=== PATIENT | female | born 1955 | race Caucasian/White ===

== ENCOUNTER 2018-10-21 05:53 | Inpatient (IN) | payer BC ==
--- NOTE | 2018-10-13 17:23 | HP ---
HISTORY AND PHYSICAL: DATE OF ADMISSION/SURGERY: 10/21/18 DATE OF OFFICE VISIT: 10/13/18 SURGEON: Carolyn العلي MD * (DICTATED BY UYEN CROWE) PROCEDURE: Right total knee arthroplasty. CHIEF COMPLAINT: Right knee pain. HISTORY OF PRESENT ILLNESS: Ms. Benton is a 63-year-old female with end-stage osteoarthritis of the right knee. She has failed conservative treatment and elected to proceed with right total knee arthroplasty. PAST MEDICAL HISTORY: Breast cancer, DVT/PE, and sleep apnea. PAST SURGICAL HISTORY: Cholecystectomy, appendectomy, cyst removal from her head, tubal ligation, placement of chemotherapy port, and mastectomy. CURRENT MEDICATIONS: 1. Letrozole 2.5 mg daily. 2. Vitamin D3. ALLERGIES: To MACRODANTIN. FAMILY HISTORY: Cancer. SOCIAL HISTORY: She is a 63-year-old female. She lives with her spouse. She is a former smoker, quit approximately 30 years ago. Denies use of drugs. She uses occasional alcohol. REVIEW OF SYSTEMS: A complete 14-point review of systems was reviewed with the patient. It was positive for history of DVT, PE. She denies history of HIV, hepatitis, or anesthesia problems. PHYSICAL EXAMINATION GENERAL: She is well developed, well nourished, in no acute distress. VITAL SIGNS: She stands 5 feet tall, weight 222 pounds, blood pressure 144/86, heart rate 64. HEENT: Normocephalic, atraumatic. NECK: Supple. No palpable lymph nodes. PULMONARY: The lungs are clear to auscultation bilaterally. CARDIO: Regular rate and rhythm. Strong S1, S2. ABDOMEN: Soft, nontender, nondistended. NEUROLOGIC: She is alert and oriented x3. MUSCULOSKELETAL: Right lower extremity: Skin is intact. There are no open wounds or abrasions. There is a moderate effusion of the right knee joint. She has some tenderness over the medial and lateral joint line. Range of motion is 5 to 100 degrees of flexion with patellofemoral crepitus. She has a 2 + dorsalis pedis pulse and intact sensation. ASSESSMENT AND PLAN: Ms. Benton is a 63-year-old female with end-stage osteoarthritis of the right knee. She has failed conservative treatment and elected to proceed with a right total knee arthroplasty. The surgery is scheduled for 10/21/[address] العلي discussed the risks and benefits of the surgery at today's visit and all of her questions were answered. She will follow up with Dr. العلي 2 weeks after the surgery. No TXA will be used on this patient secondary to history of DVT/PE and postoperatively, the patient has requested Xarelto for DVT prophylaxis. UYEN CROWE [id number]/[facility] #: [id number] KASIA
[~2018-10-21 05:53] MED LIST: Buffered Lidocaine 1% SYRIN* 1 ML/SYRINGE INTRADERM ONE
--- OUTSIDE RECORDS SUMMARY | 2018-10-21 05:57 | XMS REPORT | Continuity of Care Document ---
:1955 External Reference #:[id number] Author Name Mary Brooke Care Team Providers Name Role Phone Trini Mann MD Primary Care Physician Unavailable Payers Date Identification Numbers Payment Provider Subscriber Effective: 2016 Policy Number: [id number] [employer] Sweta Benton PayID: [id number] [address] [address] [place] [address] Advance Directives Description No Information Available Problems Active Problems Provider Date Difficulty breathing Brandee Ramirez MD Onset: 12/12/2015 Morbid obesity Brandee Ramirez MD Onset: 12/12/2015 Obstructive sleep apnea syndrome Brandee Ramirez MD Onset: 01/15/2016 Obesity Brandee Ramirez MD Onset: 01/15/2016 Localized, primary osteoarthritis Carolyn العلي M.D. Onset: 07/05/2018 Family History Date Family Member(s) Observation Comments Father due to Gastric Cancer () - Age 56 Mother due to Emphysema () Mother due to COPD () - age 78 Siblings 2 sisters healthy 1 brother Social History Type Date Description Comments Sex Unknown Marital Status Occupation civil engineer's aide No pets in home Cigarette Use Quit 33 Years Ago ETOH Use Denies alcohol use Tobacco Use Start: Unknown End: Patient is a former Unknown smoker Smoking Status Reviewed: 10/13/18 Patient is a former smoker Exercise Type/Frequency Exercises regularly walks Allergies, Adverse Reactions, Alerts Active Allergies Reaction Severity Comments Date Macrodantin 12/12/2015 Medications Active Medications SIG Qnty Indications Ordering Provider Date Letrozole 1 by mouth daily Unknown 09/03/2016 2.5mg Tablets Vitamin D3 2 by mouth every Unknown 09/03/2016 2000Unit day Tablets Mandibular dear , please G47.33 Brandee Ramirez, 01/15/2016 Advancement Device evaluate and MD fabricate oral Device appliance for mild sleep apnea History Medications Celebrex 1 tab by mouth a day as Unknown 09/03/2016 - Unknown 100mg Capsules needed Coumadin as directed Unknown 01/24/2016 - Unknown 5mg Solution Rec Lovenox 1 subcutaneously every 12 Unknown 01/24/2016 - Unknown 100mg/ml Solution hours as directed Multi Adult Gummies 1 by mouth every day Unknown 12/11/2015 - Unknown Chewtabs Emend As directed Unknown 12/11/2015 - Unknown 125mg Capsules Dexamethasone As directed Unknown 12/11/2015 - Unknown 4mg Tablets Prochlorperazine Maleate take 1 tablet by mouth Unknown - Unknown 10mg three times a day as Tablets needed Ondansetron HCL one by mouth every 8 Unknown - Unknown 4mg Tablets hours as needed for nausea Xarelto 1 by mouth every day Unknown - Unknown 20mg Tablets Immunizations Description No Information Available Vital Signs Date Vital Result Comment 10/13/2018 10:45am Height 60 inches 5'0" Weight 222.00 lb Heart Rate 64 /min BP Systolic 144 mmHg BP Diastolic 86 mmHg BMI (Body Mass Index) 43.4 kg/m2 09/27/2018 8:17am Height 60 inches 5'0" Weight 222.00 lb Heart Rate 68 /min BP Systolic 120 mmHg BP Diastolic 84 mmHg Body Temperature 97.7 F Pain Level 2 BMI (Body Mass Index) 43.4 kg/m2 07/05/2018 3:16pm Height 60 inches 5'0" Weight 220.00 lb BP Systolic 136 mmHg BP Diastolic 86 mmHg Respiratory Rate 18 /min Pain Level 8 BMI (Body Mass Index) 43.0 kg/m2 10/22/2017 2:22pm Heart Rate 76 /min Respiratory Rate 16 /min Body Temperature 99.1 F 10/13/2017 11:18am Heart Rate 80 /min BP Systolic 140 mmHg BP Diastolic 82 mmHg Respiratory Rate 16 /min Body Temperature 98.5 F 09/29/2017 1:31pm Height 60.5 inches 5'0.50" Weight 232.00 lb Heart Rate 72 /min BP Systolic 152 mmHg BP Diastolic 92 mmHg Respiratory Rate 16 /min Body Temperature 98.2 F BMI (Body Mass Index) 44.6 kg/m2 08/28/2016 2:28pm Height 60.5 inches 5'0.50" Weight 232.00 lb Heart Rate 92 /min BP Systolic 128 mmHg BP Diastolic 88 mmHg Respiratory Rate 14 /min O2 % BldC Oximetry 97 % BMI (Body Mass Index) 44.6 kg/m2 03/24/2016 2:36pm Height 60.5 inches 5'0.50" Weight 220.00 lb Heart Rate 66 /min BP Systolic 118 mmHg BP Diastolic 72 mmHg Respiratory Rate 16 /min Body Temperature 98.0 F BMI (Body Mass Index) 42.3 kg/m2 01/15/2016 3:43pm Height 60.5 inches 5'0.50" Weight 230.00 lb Heart Rate 74 /min BP Systolic 128 mmHg BP Diastolic 80 mmHg Respiratory Rate 14 /min O2 % BldC Oximetry 94 % BMI (Body Mass Index) 44.2 kg/m2 12/12/2015 8:47am Height 60.5 inches 5'0.50" Weight 230.00 lb Heart Rate 108 /min BP Systolic 126 mmHg BP Diastolic 60 mmHg Respiratory Rate 14 /min O2 % BldC Oximetry 94 % BMI (Body Mass Index) 44.2 kg/m2 Neck Circumference in inches 14.5 Results Test Date Facility Test Result H/L Range Note CBC Auto Diff 03/04/2016 [facility] White Blood 7.0 10^3/uL N 3.5-10.[address] [place] [address] [phone] Red Blood Count 4.11 10^6/uL N 4.0-5.4 Hemoglobin 12.5 g/dL N 12.0-16.0 Hematocrit 38 % N 35-47 Mean Corpuscular Volume 94 fL N 80-97 Mean Corpuscular Hemoglobin 30 pg N 27-31 Mean Corpuscular HGB Conc 33 g/dL N 31-36 Red Cell Distribution Width 17 % High 10.5-15 Platelet Count 265 10^3/uL N 150-450 Mean Platelet Volume 8 um3 N 7.4-10.4 Abs Neutrophils 5.7 10^3/uL N 1.5-7.7 Abs Lymphocytes 0.7 10^3/uL Low 1.0-4.8 Abs Monocytes 0.5 10^3/uL N 0-0.8 Abs Eosinophils 0.1 10^3/uL N 0-0.6 Abs Basophils 0.1 10^3/uL N 0-0.2 Abs Nucleated RBC 0 10^3/uL N Granulocyte % 80.9 % N 38-83 Lymphocyte % 9.5 % Low 25-47 Monocyte % 7.1 % N 1-9 Eosinophil % 1.5 % N 0-6 Basophil % 1.0 % N 0-2 Nucleated Red Blood Cells % 0 N Basic Metabolic Panel 03/04/2016 [facility] Sodium 139 mmol/L N 133-[address] [place] [address] [phone] Potassium 4.1 mmol/L N 3.5-5.0 Chloride 105 mmol/L N 101-111 Co2 Carbon Dioxide 27 mmol/L N 22-32 Anion Gap 7 mmol/L N 2-11 Glucose 88 mg/dL N 70-100 Blood Urea Nitrogen 10 mg/dL N 6-24 Creatinine 0.64 mg/dL N 0.51-0.95 BUN/Creatinine Ratio 15.6 N 8-20 Calcium 9.4 mg/dL N 8.6-10.3 Egfr Non- 94.7 N >60 Egfr 121.7 N >60 2 1 AA 03/14 2 Because ethnic data is not always readily available, this report includes an eGFR for both -Americans and non- Americans. The National Kidney Disease Education Program (NKDEP) does not endorse the use of the MDRD equation for patients that are not between the ages of 18 and 70, are , have extremes of body size, muscle mass, or nutritional status, or are non- or non-. According to the National Kidney Foundation, irrespective of diagnosis, the stage of the disease is based on the level of kidney function: Stage Description GFR(mL/min/1.73 m(2)) 1 Kidney damage with normal or decreased GFR 90 2 Kidney damage with mild decrease in GFR 60-89 3 Moderate decrease in GFR 30-59 4 Severe decrease in GFR 15-29 5 Kidney failure <15 (or dialysis) Procedures Date Code Description Status 10/13/2017 43965 Excision Benign Lesion Incl Diameter 1.1 - 2.0 CM Completed Scalp,Neck,Hand 03/04/2016 43663 EKG, Interpretation Only Completed 01/24/2016 56882 ECHO Transthoracic, Real-Time 2D With Doppler And Color Completed Flow 12/24/2015 75921 Sleep Study Unattended,HRT Rate,Oxygen Sat,Resp Completed Effort/Airflow 10/30/2015 34495 ECHO Transthorasic Realtime 2D W Doppler & Color Flow Completed Hosp 08/31/2015 [id number] Mammogram Completed Encounters Type Date Location Provider Dx Diagnosis Office Visit 09/27/2018 Orthopedic Carolyn العلي, M17.0 Bilateral primary 8:30a [facility] osteoarthritis of knee Z68.41 Body mass index (BMI) 40.0-44.9, adult E66.01 Morbid (severe) obesity due to excess calories M25.562 Pain in left knee M25.561 Pain in right knee M25.462 Effusion, left knee M25.461 Effusion, right knee Office Visit 07/05/2018 3:00p [facility]opedic [facility] Carolyn العلي, M25.562 Pain in left [facility] knee M25.561 Pain in right knee M25.462 Effusion, left knee M25.461 Effusion, right knee M17.0 Bilateral primary osteoarthritis of knee E66.01 Morbid (severe) obesity due to excess calories Z68.41 Body mass index (BMI) 40.0-44.9, adult Office Visit 09/29/2017 1:30p Surgical Natali Nehemiah L72.3 Sebaceous cyst [facility] MD Marco Antonio Office Visit 08/28/2016 2:30p Pulmonology And Brandee G47.33 Obstructive sleep [facility] MD James apnea (adult) [facility] (pediatric) E66.09 Other obesity due to excess calories Z68.41 Body mass index (BMI) 40.0-44.9, adult Office Visit 01/15/2016 3:45p Pulmonology And Brandee G47.33 Obstructive sleep [facility] apnea (adult) [facility] (pediatric) E66.09 Other obesity due to excess calories Office Visit 12/12/2015 8:45a Pulmonology And Sleep Brandee Ramirez, R06.83 [facility] E66.01 Morbid (severe) obesity due to excess calories Plan of Treatment Future Appointment(s):11/03/2018 8:45 am - Carolyn العلي M.D. at [facility].10/21/2018 11:45 am - José Manuel Abdalla PA-C at [facility].10/21/2018 11:45 am - UYEN Menjivar at [facility].10/21/2018 11:45 am - Carolyn العلي M.D. at [facility].10/13/2018 - Carolyn العلي M.D.M17.0 Bilateral primary osteoarthritis of kneeFollow up:Follow up: 2 weeks after [id number] Effusion, right kneeM25.561 Pain in right knee
--- OUTSIDE RECORDS SUMMARY | 2018-10-21 05:57 | XMS REPORT | Continuity of Care Document ---
:1955 External Reference #:[id number] Author Name Trini Mann M.D. Address [address] [place] [address] Care Team Providers Name Role Phone Trini Mann M.D. Care Team Information Associate Loan Officer Unavailable Trini Mann M.D. Primary Care Physician Unavailable Payers Date Identification Numbers Payment Provider Subscriber Effective: 2016 Policy Number: [id number] /BS Of [facility] Aimee Hyatt PayID: [id number] [place] [id number] Advance Directives Description No Information Available Problems Active Problems Provider Date Carcinoma of breast Trini Mann M.D. Onset: 09/11/2015 Obstructive sleep apnea syndrome Trini Mann M.D. Onset: 08/29/2016 H/O: pulmonary embolus Trini Mann M.D. Onset: 10/04/2018 Obesity Trini Mann M.D. Onset: 04/29/2017 Localized, primary osteoarthritis Trini Mann M.D. Onset: 12/19/2016 Impaired fasting glycaemia Trini Mann M.D. Onset: 12/19/2016 Personal history of primary malignant neoplasm Trini Mann M.D. Onset: 12/2016 of breast Resolved Problems Acute upper respiratory infection Gilbert Maria M.D. Onset: 06/18/2011 Resolved: 09/11/2015 Family History Date Family Member(s) Observation Comments Father due to Stomach Cancer () Mother Coronary Artery Disease (CAD) Mother due to COPD () Mother Emphysema First Sister Ovarian Cancer Social History Type Date Description Comments Sex Unknown Marital Status . Lives With Spouse Diet Portions working on Tobacco Use Start: Unknown End: Former Cigarette Smoker Unknown ETOH Use Social Alcohol Tobacco Use Start: Unknown End: Patient is a former Unknown smoker Smoking Status Reviewed: 10/04/18 Patient is a former smoker Exercise Exercises sporadically walking at work Type/Frequency Allergies, Adverse Reactions, Alerts Active Allergies Reaction Severity Comments Date Macrodantin 02/04/2005 Medications Active Medications SIG Qnty Indications Ordering Provider Date Vitamin D 2 by mouth every Unknown 2000Unit Capsules day Letrozole 1 by mouth every Unknown 2.5mg Tablets day History Medications Acetaminophen-Codeine #3 1-2 tab by mouth 90tabs M17.0 Trini Mann, 02/25 - 300-30mg every 6 hours as M.DAdina 08/31/2017 Tablets needed Celecoxib 1 by mouth twice 60caps M17.0 Gilbert Sánchez 12/19/2016 - 200mg Capsules a day Leonor Maria 02/25/2017 No Active Medications Unknown 08/30/2015 - 12/19/2016 Work Excuse unable to work Gilbert Sánchez 06/18/2011 - for 1-2 days Leonor Maria 08/30/2015 due to respiratory illness Entex Pse 1 po q12 hrs prn 20caps Preethi 02/04/2005 - 400mg;120 mg Capsules samir [facility], 06/18/2011 Afnp-C Cefuroxime 500Mpo bid 0units [facility] 06/10/2004 - [facility] 09/27/2007 [facility] Multivitamin 1 po qd Unknown - Tablets 08/31/2017 Immunizations CPT Code Status Date Vaccine Lot # [id number] Given 02/26/2017 Influenza Vac, Quadriv[place], [place] [id number] Given 02/25/2017 Tdap Tetanus, W Pertussis [id number] Vital Signs Date Vital Result Comment 10/04/2018 3:19pm BP Systolic 128 mmHg BP Diastolic 82 mmHg Heart Rate 68 /min Body Temperature 97.4 F Respiratory Rate 17 /min Height 60.5 inches 5'0.50" Weight 222.00 lb BMI (Body Mass Index) 42.6 kg/m2 09/01/2017 2:02pm BP Systolic 128 mmHg BP Diastolic 72 mmHg Heart Rate 76 /min Body Temperature 98.8 F Respiratory Rate 16 /min Height 60.5 inches 5'0.50" Weight 243.00 lb BMI (Body Mass Index) 46.7 kg/m2 04/29/2017 4:15pm BP Systolic 140 mmHg BP Diastolic 88 mmHg Heart Rate 68 /min Body Temperature 98.0 F Respiratory Rate 18 /min Height 60.5 inches 5'0.50" Weight 242.00 lb BMI (Body Mass Index) 46.5 kg/m2 02/25/2017 8:07am BP Systolic 160 mmHg BP Diastolic 100 mmHg BP Systolic Recheck 164 mmHg BP Diastolic Recheck 104 mmHg Heart Rate 72 /min Body Temperature 98.0 F Respiratory Rate 18 /min Height 60.5 inches 5'0.50" Weight 240.00 lb BMI (Body Mass Index) 46.1 kg/m2 12/19/2016 4:28pm BP Systolic 152 mmHg BP Diastolic 88 mmHg Heart Rate 76 /min Body Temperature 99.4 F Respiratory Rate 16 /min Height 60.5 inches 5'0.50" Weight 233.50 lb BMI (Body Mass Index) 44.8 kg/m2 08/30/2015 1:50pm BP Systolic 142 mmHg BP Diastolic 84 mmHg Heart Rate 88 /min Body Temperature 98.6 F Respiratory Rate 16 /min Height 60.5 inches 5'0.50" Weight 241.25 lb BMI (Body Mass Index) 46.3 kg/m2 06/18/2011 1:19pm BP Systolic 130 mmHg BP Diastolic 84 mmHg Heart Rate 72 /min Body Temperature 100.8 F Height 60.5 inches 5'0.50" Weight 220.00 lb BMI (Body Mass Index) 42.3 kg/m2 09/27/2007 2:05pm BP Systolic 138 mmHg BP Diastolic 88 mmHg Heart Rate 76 /min Body Temperature 98.4 F Height 60.5 inches 5'0.50" Weight 238.00 lb BMI (Body Mass Index) 45.7 kg/m2 02/04/2005 10:20am BP Systolic 132 mmHg BP Diastolic 90 mmHg Heart Rate 68 /min Body Temperature 98.1 F Height 60.5 inches 5'0.50" Weight 222.00 lb BMI (Body Mass Index) 42.6 kg/m2 06/10/2004 1:27pm BP Systolic 142 mmHg BP Diastolic 84 mmHg Heart Rate 68 /min Height 60.5 inches 5'0.50" Weight 224.00 lb BMI (Body Mass Index) 43.0 kg/m2 Results Test Date Facility Test Result H/L Range Note Urinalysis Profile [place]/25/[place] [facility] Color Yellow Urine Appearance Cloudy Urine Specific [place] 1.023 N 1.010-1.030 Urine pH 5.0 N 5-9 Urine Urobilinogen Negative Negative Urine Ketones Negative Negative Urine Protein Negative Negative Urine Leukocytes 3+ Abnormal Negative Urine Blood Negative Negative Urine Nitrite Negative Negative Urine Bilirubin Negative Negative Urine Glucose Negative Negative Urine White Blood Cell 3+(>20/hpf) Abnormal Absent Urine Red Blood Cell 3+(>10/hpf) Abnormal Absent Urine Bacteria 1+ Abnormal Absent Urine Squamous Epithelial Cell Present Abnormal Absent Urine Culture And 12/25/2017 [facility] [place] Culture SEE RESULT BELOW 1 Sensitivities CBC Auto Diff 12/25/2017 [facility] White Blood Count 9.9 10^3/uL N 3.5-10.8 Red Blood Count 4.92 10^6/uL N 4.00-5.40 Hemoglobin 15.0 g/dL N 12.0-16.0 Hematocrit 45 % N 35-47 Mean Corpuscular Volume 91 fL N 80-97 Mean Corpuscular Hemoglobin 31 pg N 27-31 Mean Corpuscular HGB Conc 33 g/dL N 31-36 Red Cell Distribution Width 14 % N 10.5-15 Platelet Count 241 10^3/uL N 150-450 Mean Platelet Volume 8.4 um3 N 7.4-10.4 Abs Neutrophils 7.3 10^3/uL N 1.5-7.7 Abs Lymphocytes 1.7 10^3/uL N 1.0-4.8 Abs Monocytes 0.6 10^3/uL N 0-0.8 Abs Eosinophils 0.2 10^3/uL N 0-0.6 Abs Basophils 0.1 10^3/uL N 0-0.2 Abs Nucleated RBC 0 10^3/uL Granulocyte % 73.9 % N 38-83 Lymphocyte % 16.8 % Low 25-47 Monocyte % 6.4 % N 0-7 Eosinophil % 2.0 % N 0-6 Basophil % 0.9 % N 0-2 Nucleated Red Blood Cells % 0.1 Comp Metabolic Panel 12/25/2017 [facility] Sodium 140 mmol/L N 135-145 Potassium 4.1 mmol/L N 3.5-5.0 Chloride 104 mmol/L N 101-111 Co2 Carbon Dioxide 26 mmol/L N 22-32 Anion Gap 10 mmol/L N 2-11 Glucose 158 mg/dL High 70-100 Blood Urea Nitrogen 17 mg/dL N 6-24 Creatinine 0.72 mg/dL N 0.51-0.95 BUN/Creatinine Ratio 23.6 High 8-20 Calcium 9.8 mg/dL N 8.6-10.3 Total Protein 7.1 g/dL N 6.4-8.9 Albumin 4.3 g/dL N 3.2-5.2 Globulin 2.8 g/dL N 2-4 Albumin/Globulin Ratio 1.5 N 1-3 Total Bilirubin 0.40 mg/dL N 0.2-1.0 Alkaline Phosphatase 92 U/L N 34-104 Alt 36 U/L N 7-52 Ast 27 U/L N 13-39 Egfr Non- 82.1 >60 Egfr 99.3 >60 2 Laboratory test 12/25/2017 [facility] Vitamin D Total 39.5 ng/mL N 20-50 finding 25(Oh) Laboratory test 09/09/2017 [facility] Hemoglobin A1c 6.3 % High 4.1- 5.7 finding (607)- - (Fma) Laboratory test 09/09/2017 [facility] LDL, Direct 137 mg/dL High 0- 130 finding CBC Electronic 09/09/2017 [facility] WBC 7.5 4.0-10.0 Fma x10^3/UL RBC 5.22 x10^6/UL 3.93-6.00 HGB 15.8 g/dL 12.0-17.0 HCT 47 % 35-50 MCV 90.2 fL 80.0-95.0 MCH 30.3 pg 25.6-32.2 MCHC 33.5 g/dL 32.2-36.0 RDW-CV 13.2 % 11.6-14.4 PLT 246 x10^3/UL 163-400 MPV 10.8 fL 9.4-12.4 Tiny# 5.28 x10^3/UL 1.56-6.13 Lymph# 1.53 x10^3/UL 1.18-3.74 Bath# 0.49 x10^3/UL 0.24-0.82 Eos # 0.2 x10^3/UL 0.0-0.5 Baso # 0.06 x10^3/UL 0.01-0.08 Tiny% 70.0 % 34.0-70.0 Lymph % 20.3 % 20.0-52.0 Bath% 6.5 % 5.0-12.0 Eos% 2.3 % 0.7-7.0 Baso% 0.8 % 0.1-1.2 Lipid Profile 09/09/2017 [facility] Cholesterol 241 mg/dL High 120- 200 Triglycerides 306 mg/dL High 30-200 HDL Cholesterol 44 mg/dL 30-85 LDL (Calculated) 136 CALC High 0-129 VLDL Cholesterol 61 mg/dL High 0-50 HDL Risk Factor 5.5 CALC High 0.0-4.4 Comprehensive Metabolic Prof 09/09/2017 [facility] Sodium 143 mEq/L 134-149 Potassium 4.3 mEq/L 3.6-5.5 Chloride 103 mEq/L 94-112 Carbon Dioxide 28 mEq/L 21-32 Glucose 116 mg/dL High 70-105 3 BUN 15 mg/dL 6-26 Creatinine 0.7 mg/dL 0.6-1.4 BUN/Creat Ratio 21.4 CALC 8.0-36.0 Calcium 10.2 mg/dL 8.6-10.2 Total Protein 7.6 g/dL 6.4-8.3 Albumin 4.5 g/dL 3.8-5.5 Globulin 3.1 g/dL 2.0-4.8 A/G Ratio 1.5 CALC 0.6-2.3 Alk. Phosphatase 109 U/L 30-110 Alt (SGPT) 35 U/L 7-35 Ast (Sgot) 31 U/L 5-34 Total Bilirubin 0.6 mg/dL 0.2-1.3 GFR Non- >60 ml/min/1.73m^ >=60 GFR >60 ml/min/1.73m^ >=60 Laboratory test 04/17/2017 [facility] [place]ology SEE RESULT 4 finding BELOW Laboratory test 02/25/2017 [facility] PDF [id number] SEE IMAGE finding [address] [place] [address] (912)- - Age 0902/25/2017 [facility] Age 30-65 [address] [place] [address] (810)- - Diagn See Comment: 5 Adeq See Comment: 6 [email or web address] See Comment: 7 Perfor See Comment: 8 Comm . Note See Comment: 9 Iglbp See Comment: 10 HPV Aptima Negative Negative 11 Laboratory test 02/25/2017 [facility] Hemoglobin A1c 6.1 % High 4.1- 5.7 finding (607)- - (Fma) Complete Blood 02/25/2017 [facility] WBC 6.2 3.6-9.6 Count x10^3/UL RBC 5.06 x10^6/UL 3.90-5.70 HGB 15.4 g/dL 12.1-17.2 HCT 46 % 36-50 MCV 91.0 fL 82.2-97.4 MCH 30.4 pg 27.6-33.3 MCHC 33.6 g/dL 33.0-35.5 RDW 14.4 % High 11.6-13.7 PLT 251 x10^3/UL 150-400 MPV 7.8 fL 7.4-10.4 Gran # 4.6 x10^3/UL 1.5-7.2 Lymph# 1.3 x10^3/UL 0.7-4.9 Bath# 0.3 x10^3/UL 0.1-0.9 Gran % 72.5 % 42.2-75.2 Lymph % 21.6 % 20.5-51.1 Bath% 5.9 % 1.7-9.3 Comprehensive Metabolic Prof 02/25/2017 [facility] Sodium 139 mEq/L 134-149 Potassium 4.4 mEq/L 3.6-5.5 Chloride 99 mEq/L 94-112 Carbon Dioxide 25 mEq/L 21-32 Glucose 110 mg/dL High 70-105 BUN 12 mg/dL 6-26 Creatinine 0.7 mg/dL 0.6-1.4 BUN/Creat Ratio 17.1 CALC 8.0-36.0 Calcium 10.0 mg/dL 8.6-10.2 Total Protein 6.7 g/dL 6.4-8.3 Albumin 4.4 g/dL 3.8-5.5 Globulin 2.3 g/dL 2.0-4.8 A/G Ratio 1.9 CALC 0.6-2.3 Alk. Phosphatase 90 U/L 30-110 Alt (SGPT) 32 U/L 7-35 Ast (Sgot) 25 U/L 5-34 Total Bilirubin 0.6 mg/dL 0.2-1.3 GFR Non- >60 ml/min/1.73m^ >=60 GFR >60 ml/min/1.73m^ >=60 Lipid Profile 02/25/2017 [facility] Cholesterol 238 mg/dL High 120- 200 Triglycerides 243 mg/dL High 30-200 HDL Cholesterol 51 mg/dL 30-85 LDL (Calculated) 138 CALC High 0-129 VLDL Cholesterol 49 mg/dL 0-50 HDL Risk Factor 4.7 CALC High 0.0-4.4 Laboratory test 02/25/2017 [facility] TSH 3.51 mIU/L 0.50-6.00 finding Lipid Profile 11/24/2016 [facility] Triglycerides 222 mg/dL N 12 (Trig/Chol/HDL) Cholesterol 203 mg/dL N 13 HDL Cholesterol 43.2 mg/dL N 14 LDL Cholesterol 115 mg/dL N 15 Comp Metabolic Panel 11/24/2016 [facility] Sodium 138 mmol/L N 133-145 Potassium 4.0 mmol/L N 3.5-5.0 Chloride 106 mmol/L N 101-111 Co2 Carbon Dioxide 27 mmol/L N 22-32 Anion Gap 5 mmol/L N 2-11 Glucose 114 mg/dL High 70-100 Blood Urea Nitrogen 12 mg/dL N 6-24 Creatinine 0.74 mg/dL N 0.51-0.95 BUN/Creatinine Ratio 16.2 N 8-20 Calcium 9.9 mg/dL N 8.6-10.3 Total Protein 7.0 g/dL N 6.4-8.9 Albumin 4.2 g/dL N 3.2-5.2 Globulin 2.8 g/dL N 2-4 Albumin/Globulin Ratio 1.5 N 1-3 Total Bilirubin 0.60 mg/dL N 0.2-1.0 Alkaline Phosphatase 90 U/L N 34-104 Alt 22 U/L N 7-52 Ast 19 U/L N 13-39 Egfr Non- 79.8 N >60 Egfr 102.6 N >60 16 CBC Auto Diff 11/24/2016 [facility] [place] Blood Count 8.8 10^3/uL N 3.5-10.8 Red Blood Count 5.20 10^6/uL N 4.0-5.4 Hemoglobin 15.1 g/dL N 12.0-16.0 Hematocrit 46 % N 35-47 Mean Corpuscular Volume 89 fL N 80-97 Mean Corpuscular Hemoglobin 29 pg N 27-31 Mean Corpuscular HGB Conc 33 g/dL N 31-36 Red Cell Distribution Width 14 % N 10.5-15 Platelet Count 236 10^3/uL N 150-450 Mean Platelet Volume 9 um3 N 7.4-10.4 Abs Neutrophils 6.7 10^3/uL N 1.5-7.7 Abs Lymphocytes 1.3 10^3/uL N 1.0-4.8 Abs Monocytes 0.5 10^3/uL N 0-0.8 Abs Eosinophils 0.2 10^3/uL N 0-0.6 Abs Basophils 0.1 10^3/uL N 0-0.2 Abs Nucleated RBC 0.01 10^3/uL N Granulocyte % 76.2 % N 38-83 Lymphocyte % 14.9 % Low 25-47 Monocyte % 5.6 % N 1-9 Eosinophil % 2.3 % N 0-6 Basophil % 1.0 % N 0-2 Nucleated Red Blood Cells % 0.1 N Laboratory test finding 08/15/2016 [facility] Vitamin D Total 25(Oh) 35.9 ng/mL N 30-50 Comp Metabolic Panel 08/15/2016 [facility] Sodium 138 mmol/L N 133-145 Potassium 3.9 mmol/L N 3.5-5.0 Chloride 102 mmol/L N 101-111 Co2 Carbon Dioxide 26 mmol/L N 22-32 Anion Gap 10 mmol/L N 2-11 Glucose 151 mg/dL High 70-100 Blood Urea Nitrogen 14 mg/dL N 6-24 Creatinine 0.78 mg/dL N 0.51-0.95 BUN/Creatinine Ratio 17.9 N 8-20 Calcium 10.1 mg/dL N 8.6-10.3 Total Protein 7.1 g/dL N 6.4-8.9 Albumin 4.2 g/dL N 3.2-5.2 Globulin 2.9 g/dL N 2-4 Albumin/Globulin Ratio 1.4 N 1-3 Total Bilirubin 0.50 mg/dL N 0.2-1.0 Alkaline Phosphatase 83 U/L N 34-104 Alt 23 U/L N 7-52 Ast 20 U/L N 13-39 Egfr Non- 75.3 N >60 Egfr 96.9 N >60 17 CBC Auto Diff 08/15/2016 [facility] White Blood Count 8.7 10^3/uL N 3.5-10.8 Red Blood Count 4.86 10^6/uL N 4.0-5.4 Hemoglobin 13.8 g/dL N 12.0-16.0 Hematocrit 42 % N 35-47 Mean Corpuscular Volume 87 fL N 80-97 Mean Corpuscular Hemoglobin 28 pg N 27-31 Mean Corpuscular HGB Conc 33 g/dL N 31-36 Red Cell Distribution Width 15 % N 10.5-15 Platelet Count 236 10^3/uL N 150-450 Mean Platelet Volume 9 um3 N 7.4-10.4 Abs Neutrophils 6.3 10^3/uL N 1.5-7.7 Abs Lymphocytes 1.5 10^3/uL N 1.0-4.8 Abs Monocytes 0.5 10^3/uL N 0-0.8 Abs Eosinophils 0.2 10^3/uL N 0-0.6 Abs Basophils 0.1 10^3/uL N 0-0.2 Abs Nucleated RBC 0 10^3/uL N Granulocyte % 73.0 % N 38-83 Lymphocyte % 17.7 % Low 25-47 Monocyte % 6.0 % N 1-9 Eosinophil % 2.3 % N 0-6 Basophil % 1.0 % N 0-2 Nucleated Red Blood Cells % 0 N CBC Auto Diff 05/26/2016 [facility] [place] Blood Count 7.8 10^3/uL N 3.5-10.8 Red Blood Count 4.66 10^6/uL N 4.0-5.4 Hemoglobin 13.3 g/dL N 12.0-16.0 Hematocrit 40 % N 35-47 Mean Corpuscular Volume 86 fL N 80-97 Mean Corpuscular Hemoglobin 29 pg N 27-31 Mean Corpuscular HGB Conc 33 g/dL N 31-36 Red Cell Distribution Width 15 % N 10.5-15 Platelet Count 210 10^3/uL N 150-450 Mean Platelet Volume 9 um3 N 7.4-10.4 Abs Neutrophils 6.0 10^3/uL N 1.5-7.7 Abs Lymphocytes 1.1 10^3/uL N 1.0-4.8 Abs Monocytes 0.5 10^3/uL N 0-0.8 Abs Eosinophils 0.1 10^3/uL N 0-0.6 Abs Basophils 0 10^3/uL N 0-0.2 Abs Nucleated RBC 0 10^3/uL N Granulocyte % 77.3 % N 38-83 Lymphocyte % 14.4 % Low 25-47 Monocyte % 5.9 % N 1-9 Eosinophil % 1.8 % N 0-6 Basophil % 0.6 % N 0-2 Nucleated Red Blood Cells % 0 N Comp Metabolic Panel 05/26/2016 [facility] [place]odium 138 mmol/L N 133-145 Potassium 4.1 mmol/L N 3.5-5.0 Chloride 103 mmol/L N 101-111 Co2 Carbon Dioxide 29 mmol/L N 22-32 Anion Gap 6 mmol/L N 2-11 Glucose 119 mg/dL High 70-100 Blood Urea Nitrogen 12 mg/dL N 6-24 Creatinine 0.73 mg/dL N 0.51-0.95 BUN/Creatinine Ratio 16.4 N 8-20 Calcium 10.0 mg/dL N 8.6-10.3 Total Protein 6.8 g/dL N 6.4-8.9 Albumin 4.1 g/dL N 3.2-5.2 Globulin 2.7 g/dL N 2-4 Albumin/Globulin Ratio 1.5 N 1-3 Total Bilirubin 0.40 mg/dL N 0.2-1.0 Alkaline Phosphatase 64 U/L N 34-104 Alt 21 U/L N 7-52 Ast 21 U/L N 13-39 Egfr Non- 81.3 N >60 Egfr 104.6 N >60 18 Laboratory test finding 05/26/2016 [facility] [place] D Total 14.9 ng/mL Low 30- 50 25(Oh) CBC Auto Diff 03/04/2016 [facility] White Blood Count 7.0 10^3/uL N 3.5-10.8 19 Red Blood Count 4.11 10^6/uL N 4.0-5.4 [...] % 0 N Basic Metabolic Panel 03/04/2016 [facility] Sodium 139 mmol/L N 133-145 Potassium 4.1 mmol/L N 3.5-5.0 Chloride 105 mmol/L N 101-111 Co2 Carbon Dioxide 27 mmol/L N 22-32 Anion Gap 7 mmol/L N 2-11 Glucose 88 mg/dL N 70-100 Blood Urea Nitrogen 10 mg/dL N 6-24 Creatinine 0.64 mg/dL N 0.51-0.95 BUN/Creatinine Ratio 15.6 N 8-20 Calcium 9.4 mg/dL N 8.6-10.3 Egfr Non- 94.7 N >60 Egfr 121.7 N >60 20 Comp Metabolic Panel 02/25/2016 [facility] Sodium 137 mmol/L N 133-145 Potassium 3.5 mmol/L N 3.5-5.0 Chloride 104 mmol/L N 101-111 Co2 Carbon Dioxide 26 mmol/L N 22-32 Anion Gap 7 mmol/L N 2-11 Glucose 113 mg/dL High 70-100 Blood Urea Nitrogen 12 mg/dL N 6-24 Creatinine 0.68 mg/dL N 0.51-0.95 BUN/Creatinine Ratio 17.6 N 8-20 Calcium 9.2 mg/dL N 8.6-10.3 Total Protein 6.5 g/dL N 6.4-8.9 Albumin 3.9 g/dL N 3.2-5.2 Globulin 2.6 g/dL N 2-4 Albumin/Globulin Ratio 1.5 N 1-3 Total Bilirubin 0.50 mg/dL N 0.2-1.0 Alkaline Phosphatase 81 U/L N 34-104 Alt 22 U/L N 7-52 Ast 18 U/L N 13-39 Egfr Non- 88.3 N >60 Egfr 113.5 N >60 21 CBC Auto Diff 02/25/2016 [facility] [place] Blood Count 4.6 10^3/uL N 3.5-10.8 Red Blood Count 3.62 10^6/uL Low 4.0-5.4 Hemoglobin 11.0 g/dL Low 12.0-16.0 Hematocrit 34 % Low 35-47 Mean Corpuscular Volume 93 fL N 80-97 Mean Corpuscular Hemoglobin 31 pg N 27-31 Mean Corpuscular HGB Conc 33 g/dL N 31-36 Red Cell Distribution Width 18 % High 10.5-15 Platelet Count 251 10^3/uL N 150-450 Mean Platelet Volume 8 um3 N 7.4-10.4 Abs Neutrophils 3.5 10^3/uL N 1.5-7.7 Abs Lymphocytes 0.5 10^3/uL Low 1.0-4.8 Abs Monocytes 0.5 10^3/uL N 0-0.8 Abs Eosinophils 0 10^3/uL N 0-0.6 Abs Basophils 0 10^3/uL N 0-0.2 Abs Nucleated RBC 0.01 10^3/uL N Granulocyte % 75.3 % N 38-83 Lymphocyte % 11.7 % Low 25-47 Monocyte % 11.3 % High 1-9 Eosinophil % 1.1 % N 0-6 Basophil % 0.6 % N 0-2 Nucleated Red Blood Cells % 0.1 N Laboratory test finding 02/25/2016 [facility] [place]r/Protime 1.73 High 0.89-1.11 CBC Auto Diff 02/11/2016 [facility] White Blood Count 5.9 10^3/uL N 3.5-10.8 Red Blood Count 3.63 10^6/uL Low 4.0-5.4 Hemoglobin 11.3 g/dL Low 12.0-16.0 Hematocrit 34 % Low 35-47 Mean Corpuscular Volume 94 fL N 80-97 Mean Corpuscular Hemoglobin 31 pg N 27-31 Mean Corpuscular HGB Conc 33 g/dL N 31-36 Red Cell Distribution Width 19 % High 10.5-15 Platelet Count 182 10^3/uL N 150-450 Mean Platelet Volume 8 um3 N 7.4-10.4 Abs Neutrophils 5.1 10^3/uL N 1.5-7.7 Abs Lymphocytes 0.4 10^3/uL Low 1.0-4.8 Abs Monocytes 0.3 10^3/uL N 0-0.8 Abs Eosinophils 0.1 10^3/uL N 0-0.6 Abs Basophils 0 10^3/uL N 0-0.2 Abs Nucleated RBC 0 10^3/uL N Granulocyte % 85.7 % High 38-83 Lymphocyte % 7.5 % Low 25-47 Monocyte % 4.8 % N 1-9 Eosinophil % 1.4 % N 0-6 Basophil % 0.6 % N 0-2 Nucleated Red Blood Cells % 0 N Laboratory test finding 02/11/2016 [facility] Inr/Protime 1.74 High 0.89-1.11 Comp Metabolic Panel 01/30/2016 [facility] Sodium 138 mmol/L N 133-145 Potassium 3.7 mmol/L N 3.5-5.0 Chloride 107 mmol/L N 101-111 Co2 Carbon Dioxide 22 mmol/L N 22-32 Anion Gap 9 mmol/L N 2-11 Glucose 111 mg/dL High 70-100 Blood Urea Nitrogen 11 mg/dL N 6-24 Creatinine 0.59 mg/dL N 0.51-0.95 BUN/Creatinine Ratio 18.6 N 8-20 Calcium 9.0 mg/dL N 8.6-10.3 Total Protein 6.4 g/dL N 6.4-8.9 Albumin 3.7 g/dL N 3.2-5.2 Globulin 2.7 g/dL N 2-4 Albumin/Globulin Ratio 1.4 N 1-3 Total Bilirubin 0.70 mg/dL N 0.2-1.0 Alkaline Phosphatase 97 U/L N 34-104 Alt 28 U/L N 7-52 Ast 26 U/L N 13-39 Egfr Non- 104.0 N >60 Egfr 133.7 N >60 22 Inr/Protime 01/30/2016 [facility] Inr 1.91 High 0.89-1.11 Laboratory test finding 01/30/2016 [facility] Magnesium 1.9 mg/dL N 1.9-2.7 Comp Metabolic Panel 01/28/2016 [facility] Sodium 138 mmol/L N 133-145 Potassium 3.7 mmol/L N 3.5-5.0 Chloride 106 mmol/L N 101-111 Co2 Carbon Dioxide 25 mmol/L N 22-32 Anion Gap 7 mmol/L N 2-11 Glucose 148 mg/dL High 70-100 Blood Urea Nitrogen 9 mg/dL N 6-24 Creatinine 0.62 mg/dL N 0.51-0.95 BUN/Creatinine Ratio 14.5 N 8-20 Calcium 9.1 mg/dL N 8.6-10.3 Total Protein 6.5 g/dL N 6.4-8.9 Albumin 3.7 g/dL N 3.2-5.2 Globulin 2.8 g/dL N 2-4 Albumin/Globulin Ratio 1.3 N 1-3 Total Bilirubin 0.40 mg/dL N 0.2-1.0 Alkaline Phosphatase 83 U/L N 34-104 Alt 24 U/L N 7-52 Ast 21 U/L N 13-39 Egfr Non- 98.2 N >60 Egfr 126.3 N >60 23 CBC Auto Diff 01/28/2016 [facility] [place] Blood Count 7.5 10^3/uL N 3.5-10.8 Red Blood Count 3.61 10^6/uL Low 4.0-5.4 Hemoglobin 11.2 g/dL Low 12.0-16.0 Hematocrit 34 % Low 35-47 Mean Corpuscular Volume 93 fL N 80-97 Mean Corpuscular Hemoglobin 31 pg N 27-31 Mean Corpuscular HGB Conc 33 g/dL N 31-36 Red Cell Distribution Width 19 % High 10.5-15 Platelet Count 180 10^3/uL N 150-450 Mean Platelet Volume 8 um3 N 7.4-10.4 Abs Neutrophils 6.4 10^3/uL N 1.5-7.7 Abs Lymphocytes 0.6 10^3/uL Low 1.0-4.8 Abs Monocytes 0.3 10^3/uL N 0-0.8 Abs Eosinophils 0.1 10^3/uL N 0-0.6 Abs Basophils 0.1 10^3/uL N 0-0.2 Abs Nucleated RBC 0.02 10^3/uL N Granulocyte % 86.1 % High 38-83 Lymphocyte % 7.8 % Low 25-47 Monocyte % 3.7 % N 1-9 Eosinophil % 1.4 % N 0-6 Basophil % 1.0 % N 0-2 Nucleated Red Blood Cells % 0.3 N Laboratory test finding 01/24/2016 [facility] [place]r/Protime 1.52 High 0.89-1.11 Laboratory test finding 01/15/[place] [facility] [place] 1.87 High 0.89-1.11 CBC Auto Diff 01/14/2016 [facility] [place] Blood Count 6.4 10^3/uL N 3.5-10.8 Red Blood Count 3.73 10^6/uL Low 4.0-5.4 Hemoglobin 11.3 g/dL Low 12.0-16.0 Hematocrit 34 % Low 35-47 Mean Corpuscular Volume 91 fL N 80-97 Mean Corpuscular Hemoglobin 30 pg N 27-31 Mean Corpuscular HGB Conc 33 g/dL N 31-36 Red Cell Distribution Width 17 % High 10.5-15 Platelet Count 162 10^3/uL N 150-450 Mean Platelet Volume 9 um3 N 7.4-10.4 Abs Neutrophils 5.0 10^3/uL N 1.5-7.7 Abs Lymphocytes 0.8 10^3/uL Low 1.0-4.8 Abs Monocytes 0.5 10^3/uL N 0-0.8 Abs Eosinophils 0 10^3/uL N 0-0.6 Abs Basophils 0.1 10^3/uL N 0-0.2 Abs Nucleated RBC 0.02 10^3/uL N Granulocyte % 77.9 % N 38-83 Lymphocyte % 13.1 % Low 25-47 Monocyte % 7.4 % N 1-9 Eosinophil % 0.4 % N 0-6 Basophil % 1.2 % N 0-2 Nucleated Red Blood Cells % 0.3 N CBC Auto Diff 12/31/[place] [facility] [place] Count 8.2 10^3/uL N 3.5-10.8 Red Blood Count 3.91 10^6/uL Low 4.0-5.4 Hemoglobin 11.7 g/dL Low 12.0-16.0 Hematocrit 35 % N 35-47 Mean Corpuscular Volume 89 fL N 80-97 Mean Corpuscular Hemoglobin 30 pg N 27-31 Mean Corpuscular HGB Conc 34 g/dL N 31-36 Red Cell Distribution Width 16 % High 10.5-15 Platelet Count 150 10^3/uL N 150-450 Mean Platelet Volume 9 um3 N 7.4-10.4 Abs Neutrophils 6.9 10^3/uL N 1.5-7.7 Abs Lymphocytes 0.6 10^3/uL Low 1.0-4.8 Abs Monocytes 0.6 10^3/uL N 0-0.8 Abs Eosinophils 0 10^3/uL N 0-0.6 Abs Basophils 0.1 10^3/uL N 0-0.2 Abs Nucleated RBC 0.02 10^3/uL N Granulocyte % 84.1 % High 38-83 Lymphocyte % 7.2 % Low 25-47 Monocyte % 7.4 % N 1-9 Eosinophil % 0.2 % N 0-6 Basophil % 1.1 % N 0-2 Nucleated Red Blood Cells % 0.3 N Comp Metabolic Panel 12/31/2015 [facility] Sodium 139 mmol/L N 133-145 Potassium 3.8 mmol/L N 3.5-5.0 Chloride 105 mmol/L N 101-111 Co2 Carbon Dioxide 25 mmol/L N 22-32 Anion Gap 9 mmol/L N 2-11 Glucose 161 mg/dL High 70-100 Blood Urea Nitrogen 6 mg/dL N 6-24 Creatinine 0.71 mg/dL N 0.51-0.95 BUN/Creatinine Ratio 8.5 N 8-20 Calcium 9.2 mg/dL N 8.6-10.3 Total Protein 6.2 g/dL Low 6.4-8.9 Albumin 3.7 g/dL N 3.2-5.2 Globulin 2.5 g/dL N 2-4 Albumin/Globulin Ratio 1.5 N 1-3 Total Bilirubin 0.40 mg/dL N 0.2-1.0 Alkaline Phosphatase 94 U/L N 34-104 Alt 27 U/L N 7-52 Ast 18 U/L N 13-39 Egfr Non- 84.0 N >60 Egfr 108.0 N >60 24 Comp Metabolic Panel 12/18/2015 [facility] Sodium 141 mmol/L N 133-145 Potassium 3.2 mmol/L Low 3.5-5.0 Chloride 106 mmol/L N 101-111 Co2 Carbon Dioxide 26 mmol/L N 22-32 Anion Gap 9 mmol/L N 2-11 Glucose 165 mg/dL High 70-100 Blood Urea Nitrogen 10 mg/dL N 6-24 Creatinine 0.65 mg/dL N 0.51-0.95 BUN/Creatinine Ratio 15.4 N 8-20 Calcium 9.1 mg/dL N 8.6-10.3 Total Protein 6.2 g/dL Low 6.4-8.9 Albumin 3.5 g/dL N 3.2-5.2 Globulin 2.7 g/dL N 2-4 Albumin/Globulin Ratio 1.3 N 1-3 Total Bilirubin 0.30 mg/dL N 0.2-1.0 Alkaline Phosphatase 71 U/L N 34-104 Alt 28 U/L N 7-52 Ast 19 U/L N 13-39 Egfr Non- 93.0 N >60 Egfr 119.6 N >60 25 CBC Auto Diff 12/18/[place] [facility] [place] Count 5.7 10^3/uL N 3.5-10.8 Red Blood Count 4.08 10^6/uL N 4.0-5.4 Hemoglobin 12.1 g/dL N 12.0-16.0 Hematocrit 36 % N 35-47 Mean Corpuscular Volume 89 fL N 80-97 Mean Corpuscular Hemoglobin 30 pg N 27-31 Mean Corpuscular HGB Conc 34 g/dL N 31-36 Red Cell Distribution Width 14 % N 10.5-15 Platelet Count 210 10^3/uL N 150-450 Mean Platelet Volume 9 um3 N 7.4-10.4 Abs Neutrophils 4.6 10^3/uL N 1.5-7.7 Abs Lymphocytes 0.6 10^3/uL Low 1.0-4.8 Abs Monocytes 0.4 10^3/uL N 0-0.8 Abs Eosinophils 0 10^3/uL N 0-0.6 Abs Basophils 0.1 10^3/uL N 0-0.2 Granulocyte % 80.3 % N 38-83 Lymphocyte % 11.2 % Low 25-47 Monocyte % 7.1 % N 1-9 Eosinophil % 0.1 % N 0-6 Basophil % 1.3 % N 0-2 CBC Auto Diff 12/03/2015 [facility] [place] Blood Count 8.4 10^3/uL N 3.5-10.8 Red Blood Count 4.49 10^6/uL N 4.0-5.4 Hemoglobin 13.4 g/dL N 12.0-16.0 Hematocrit 40 % N 35-47 Mean Corpuscular Volume 90 fL N 80-97 Mean Corpuscular Hemoglobin 30 pg N 27-31 Mean Corpuscular HGB Conc 33 g/dL N 31-36 Red Cell Distribution Width 14 % N 10.5-15 Platelet Count 126 10^3/uL Low 150-450 Mean Platelet Volume 9 um3 N 7.4-10.4 Abs Neutrophils 6.9 10^3/uL N 1.5-7.7 Abs Lymphocytes 0.9 10^3/uL Low 1.0-4.8 Abs Monocytes 0.5 10^3/uL N 0-0.8 Abs Eosinophils 0 10^3/uL N 0-0.6 Abs Basophils 0.1 10^3/uL N 0-0.2 Abs Nucleated RBC 0.01 10^3/uL N Granulocyte % 82.1 % N 38-83 Lymphocyte % 11.2 % Low 25-47 Monocyte % 5.3 % N 1-9 Eosinophil % 0.2 % N 0-6 Basophil % 1.2 % N 0-2 Nucleated Red Blood Cells % 0.1 N Comp Metabolic Panel 12/03/2015 [facility] Sodium 139 mmol/L N 133-145 Potassium 3.7 mmol/L N 3.5-5.0 Chloride 106 mmol/L N 101-111 Co2 Carbon Dioxide 25 mmol/L N 22-32 Anion Gap 8 mmol/L N 2-11 Glucose 167 mg/dL High 70-100 Blood Urea Nitrogen 9 mg/dL N 6-24 Creatinine 0.66 mg/dL N 0.51-0.95 BUN/Creatinine Ratio 13.6 N 8-20 Calcium 9.1 mg/dL N 8.6-10.3 Total Protein 6.4 g/dL N 6.4-8.9 Albumin 3.7 g/dL N 3.2-5.2 Globulin 2.7 g/dL N 2-4 Albumin/Globulin Ratio 1.4 N 1-3 Total Bilirubin 0.30 mg/dL N 0.2-1.0 Alkaline Phosphatase 87 U/L N 34-104 Alt 26 U/L N 7-52 Ast 15 U/L N 13-39 Egfr Non- 91.4 N >60 Egfr 117.5 N >60 26 Comp Metabolic Panel 11/19/2015 [facility] Sodium 139 mmol/L N 133-145 Potassium 3.9 mmol/L N 3.5-5.0 Chloride 105 mmol/L N 101-111 Co2 Carbon Dioxide 25 mmol/L N 22-32 Anion Gap 9 mmol/L N 2-11 Glucose 184 mg/dL High 70-100 Blood Urea Nitrogen 15 mg/dL N 6-24 Creatinine 0.76 mg/dL N 0.51-0.95 BUN/Creatinine Ratio 19.7 N 8-20 Calcium 9.4 mg/dL N 8.6-10.3 Total Protein 6.8 g/dL N 6.4-8.9 Albumin 3.9 g/dL N 3.2-5.2 Globulin 2.9 g/dL N 2-4 Albumin/Globulin Ratio 1.3 N 1-3 Total Bilirubin 0.30 mg/dL N 0.2-1.0 Alkaline Phosphatase 85 U/L N 34-104 Alt 26 U/L N 7-52 Ast 15 U/L N 13-39 Egfr Non- 77.6 N >60 Egfr 99.8 N >60 27 CBC Auto Diff 11/19/2015 [facility] [place] Blood Count 7.2 10^3/uL N 3.5-10.8 Red Blood Count 4.68 10^6/uL N 4.0-5.4 Hemoglobin 14.2 g/dL N 12.0-16.0 Hematocrit 43 % N 35-47 Mean Corpuscular Volume 92 fL N 80-97 Mean Corpuscular Hemoglobin 30 pg N 27-31 Mean Corpuscular HGB Conc 33 g/dL N 31-36 Red Cell Distribution Width 13 % N 10.5-15 Platelet Count 213 10^3/uL N 150-450 Mean Platelet Volume 8 um3 N 7.4-10.4 Abs Neutrophils 5.2 10^3/uL N 1.5-7.7 Abs Lymphocytes 1.6 10^3/uL N 1.0-4.8 Abs Monocytes 0.3 10^3/uL N 0-0.8 Abs Eosinophils 0.1 10^3/uL N 0-0.6 Abs Basophils 0.1 10^3/uL N 0-0.2 Abs Nucleated RBC 0.01 10^3/uL N Granulocyte % 71.5 % N 38-83 Lymphocyte % 21.8 % Low 25-47 Monocyte % 4.4 % N 1-9 Eosinophil % 0.9 % N 0-6 Basophil % 1.4 % N 0-2 Nucleated Red Blood Cells % 0.1 N Comp Metabolic Panel 11/05/2015 [facility] Sodium 138 mmol/L N 133-145 Potassium 3.8 mmol/L N 3.5-5.0 Chloride 106 mmol/L N 101-111 Co2 Carbon Dioxide 24 mmol/L N 22-32 Anion Gap 8 mmol/L N 2-11 Glucose 162 mg/dL High 70-100 Blood Urea Nitrogen 12 mg/dL N 6-24 Creatinine 0.69 mg/dL N 0.51-0.95 BUN/Creatinine Ratio 17.4 N 8-20 Calcium 9.3 mg/dL N 8.6-10.3 Total Protein 6.5 g/dL N 6.4-8.9 Albumin 3.9 g/dL N 3.2-5.2 Globulin 2.6 g/dL N 2-4 Albumin/Globulin Ratio 1.5 N 1-3 Total Bilirubin 0.40 mg/dL N 0.2-1.0 Alkaline Phosphatase 62 U/L N 34-104 Alt 22 U/L N 7-52 Ast 16 U/L N 13-39 Egfr Non- 86.8 N >60 Egfr 111.6 N >60 28 CBC Auto Diff 11/05/2015 [facility] [place] Blood Count 7.2 10^3/uL N 3.5-10.8 Red Blood Count 4.89 10^6/uL N 4.0-5.4 Hemoglobin 14.5 g/dL N 12.0-16.0 Hematocrit 46 % N 35-47 Mean Corpuscular Volume 94 fL N 80-97 Mean Corpuscular Hemoglobin 30 pg N 27-31 Mean Corpuscular HGB Conc 32 g/dL N 31-36 Red Cell Distribution Width 14 % N 10.5-15 Platelet Count 205 10^3/uL N 150-450 Mean Platelet Volume 9 um3 N 7.4-10.4 Abs Neutrophils 4.9 10^3/uL N 1.5-7.7 Abs Lymphocytes 1.7 10^3/uL N 1.0-4.8 Abs Monocytes 0.3 10^3/uL N 0-0.8 Abs Eosinophils 0.2 10^3/uL N 0-0.6 Abs Basophils 0 10^3/uL N 0-0.2 Abs Nucleated RBC 0.01 10^3/uL N Granulocyte % 67.9 % N 38-83 Lymphocyte % 24.3 % Low 25-47 Monocyte % 4.8 % N 1-9 Eosinophil % 2.4 % N 0-6 Basophil % 0.6 % N 0-2 Nucleated Red Blood Cells % 0.1 N Comp Metabolic Panel 09/17/2015 [facility] Sodium 138 mmol/L N 133-145 Potassium 4.1 mmol/L N 3.5-5.0 Chloride 105 mmol/L N 101-111 Co2 Carbon Dioxide 24 mmol/L N 22-32 Anion Gap 9 mmol/L N 2-11 Glucose 95 mg/dL N 70-100 Blood Urea Nitrogen 11 mg/dL N 6-24 Creatinine 0.69 mg/dL N 0.51-0.95 BUN/Creatinine Ratio 15.9 N 8-20 Calcium 9.6 mg/dL N 8.6-10.3 Total Protein 7.0 g/dL N 6.4-8.9 Albumin 4.2 g/dL N 3.2-5.2 Globulin 2.8 g/dL N 2-4 Albumin/Globulin Ratio 1.5 N 1-3 Total Bilirubin 0.40 mg/dL N 0.2-1.0 Alkaline Phosphatase 81 U/L N 34-104 Alt 30 U/L N 7-52 Ast 20 U/L N 13-39 Egfr Non- 87.1 N >60 Egfr 112.0 N >60 29 CBC Auto Diff 09/17/2015 [facility] [place] Blood Count 12.1 10^3/uL High 3.5- 10.8 Red Blood Count 5.19 10^6/uL N 4.0-5.4 Hemoglobin 15.4 g/dL N 12.0-16.0 Hematocrit 48 % High 35-47 Mean Corpuscular Volume 93 fL N 80-97 Mean Corpuscular Hemoglobin 30 pg N 27-31 Mean Corpuscular HGB Conc 32 g/dL N 31-36 Red Cell Distribution Width 13 % N 10.5-15 Platelet Count 238 10^3/uL N 150-450 Mean Platelet Volume 9 um3 N 7.4-10.4 Abs Neutrophils 9.0 10^3/uL High 1.5-7.7 Abs Lymphocytes 2.2 10^3/uL N 1.0-4.8 Abs Monocytes 0.7 10^3/uL N 0-0.8 Abs Eosinophils 0.1 10^3/uL N 0-0.6 Abs Basophils 0.1 10^3/uL N 0-0.2 Abs Nucleated RBC 0 10^3/uL N Granulocyte % 74.6 % N 38-83 Lymphocyte % 17.8 % Low 25-47 Monocyte % 6.1 % N 1-9 Eosinophil % 0.9 % N 0-6 Basophil % 0.6 % N 0-2 Nucleated Red Blood Cells % 0 N Laboratory test finding 09/10/2015 [facility] [place] [employer] SEE RESULT BELOW 30 1 SEE RESULT BELOW Name: AIMEE HYATT : [address]: Waqar Ball MD Acct: [id number] Unit: [id number] AGE: 62 Location: [facility] Re12/25/17 SEX: F Status: REG REF SPEC: [id number] FLAVIO: 12/25/17-[address] [facility] [address]: Waqar Ball MD REQ: [id number] RECD: 12/25/17 STATUS: JOSE ANTONIO CUEVAS DR: Trini Mann MD _ SOURCE: URINE SPDESC: ORDERED: Urine Culture Procedure Result Reported Site Urine Culture Final 12/27/17- 0953 ML No growth of clinically significant organisms * ML - Main Lab . END OF REPORT DEPARTMENT OF PATHOLOGY, [address] [place] [address] Hernan Flores M.D. Director [facility] # [id number] 2 Because ethnic data is not always [...] 15-29 5 Kidney failure <15 (or dialysis) 3 RESULTS VERIFIED BY REPEAT ANALYSIS 4 SEE RESULT BELOW Name: AIMEE HYATT : [address]: Jose Trinidad MD Acct: [id number] Unit: [id number] AGE: 61 Location: ENDO Re04/17/17 SEX: F Status: DEP REF SPEC: [id number] FLAVIO: 04/17/17- SUBM DR: Jose Trinidad MD REQ: [id number] RECD: 04/17/17 STATUS: MARCO A CUEVAS DR: Trini Mann MD _ ORDERED: LEVEL 4 FINAL DIAGNOSIS Colon, right, biopsy: -- Tubular adenoma. -- No high grade dysplasia or malignancy. CLINICAL HISTORY Screening/Surveillance for malignancy in asymptomatic patient. POST-OPERATIVE DIAGNOSIS Colonoscopy to cecum with ease - polyp seen on retro. Conclusions/Plan: Minimal diverticulosis; sessile right GROSS DESCRIPTION The specimen is received in formalin labeled, Right Colon Polyp, and consists of a 0.7 x 0.3 x 0.2 cm aggregate of navas irregular to polypoid soft tissue fragments which is submitted entirely in one cassette. Signed (signature on file) Ewelina Elder MD 11/29 1100 END OF REPORT * ML=Testing performed at Main Lab DEPARTMENT OF PATHOLOGY, [address] [place] [address] Hernan Flores M.D. Director [facility] # [id number] 5 NEGATIVE FOR INTRAEPITHELIAL LESION AND MALIGNANCY. CELLULAR CHANGES ASSOCIATED WITH ATROPHY ARE PRESENT. 6 Satisfactory for evaluation. Endocervical component may not be distinguished in cases of atrophy. 7 Z00.01 Z12.4 8 Pily Briscoe, Photo Tech ([facility]) 9 The Pap smear is a screening test designed to aid in the detection of premalignant and malignant conditions of the uterine cervix. It is not a diagnostic procedure and should not be used as the sole means of detecting cervical cancer. Both false-positive and false-negative reports do occur. 10 This liquid based ThinPrep(R) pap test was screened with the use of an image guided system. 11 This test detects fourteen high-risk HPV types (16/18/31/33/35/39/45/ 51/52/56/58/59/66/68) without differentiation. 12 Desirable <150 Borderline high 150-199 High 200-499 Very High >500 13 Desirable <200 Borderline high 200-239 High >239 14 Low <40 Desirable: 40-60 High: >60 15 Desirable: <100 mg/dL Near Optimal: 100-129 mg/dL Borderline High: 130-159 mg/dL High: 160-189 mg/dL Very High: >189 mg/dL 16 Because ethnic data is not always readily [...] 15-29 5 Kidney failure <15 (or dialysis) 17 Because ethnic data is not always readily [...] 15-29 5 Kidney failure <15 (or dialysis) 18 Because ethnic data is not always readily [...] 15-29 5 Kidney failure <15 (or dialysis) 19 03/14 20 Because ethnic data is not always readily [...] 15-29 5 Kidney failure <15 (or dialysis) 21 Because ethnic data is not always readily [...] 15-29 5 Kidney failure <15 (or dialysis) 22 Because ethnic data is not always readily [...] 15-29 5 Kidney failure <15 (or dialysis) 23 Because ethnic data is not always readily [...] 15-29 5 Kidney failure <15 (or dialysis) 24 Because ethnic data is not always readily [...] 15-29 5 Kidney failure <15 (or dialysis) 25 Because ethnic data is not always readily [...] 15-29 5 Kidney failure <15 (or dialysis) 26 Because ethnic data is not always readily [...] 15-29 5 Kidney failure <15 (or dialysis) 27 Because ethnic data is not always readily [...] 15-29 5 Kidney failure <15 (or dialysis) 28 Because ethnic data is not always readily [...] 15-29 5 Kidney failure <15 (or dialysis) 29 Because ethnic data is not always readily [...] 15-29 5 Kidney failure <15 (or dialysis) 30 SEE RESULT BELOW Name: HYATTAIMEE Jami : [address]: Natali Bernard MD Acct: [id number] Unit: [id number] AGE: 59 Location: LAB Re09/10/15 SEX: F Status: REG REF SPEC: [id number] FLAVIO: 09/10/15-1450 [facility] DR: Hernan Flores MD REQ: [id number] RECD: 09/10/15-7726 STATUS: MARCO A CUEVAS DR: Trini Bernard MD _ ORDERED: FN ASP SUPERFIC/2, FN ASP PALP/2, ESTRO REC ST, LEVEL IV, FNA IMMEDIATE PATH CONSULT, [id number], PRAS-ADD Comment: The following immunohistochemical stains are performed with appropriate controls on formalin fixed cell block from part 1. ER positive, 3+ greater than 90% of tumor cells CT positive, 2-3 plus, 70% of tumor cells HER-2 negative, 0+ Addendum Signed (signature on file) Hernan Flores MD 1026 FINAL DIAGNOSIS 1) Breast, right, 12 o'clock, fine needle aspiration by palpation: --Malignant -ductal adenocarcinoma. 2) Breast, right areola, 10 o'clock, fine needle aspiration by palpation: --Malignant -ductal adenocarcinoma. Comment: Both biopsy sites demonstrate identical findings, demonstrating characteristic features of invasive ductal carcinoma in cohesive and discohesive population of epithelial elements with moderate nuclear grade, irregular contours, moderate cytoplasm and irregular nuclear contours. Numerous intact single cells are noted with few bare bipolar nuclei. Some reactive stromal fragments are likewise seen. A cell CONTINUED ON NEXT PAGE * ML=Testing performed at Main Lab DEPARTMENT OF PATHOLOGY, [address] [place] [address] Hernan Flores M.D. Director [facility] # [id number] RUN DATE: 09/12/15 [facility] LAB LIVE PAGE 2 Patient: AIMEE HYATT [id number] (Continued) SPECIMEN COMMENTS (Continued) block was prepared in the evaluation of specimen #1. Smears and cell block reveal similar findings. The procedure was explained to and understood by the patient. Signed consent was obtained and a time out procedure was performed at the bedside to verify patient identity and biopsy site. Specimen #1- Fine needle aspiration biopsy was performed times 1 with a 25 gauge needle on approximately 3 cm mobile soft ill-defined mass at 12:00 right breast, 8 cm from the areolar rim. Specimen #[id number] aspiration biopsy was performed x1 with a 25-gauge needle on approximately 2.5 cm area with central skin induration and distortion at approximately 10:00, 12 cm from the areolar of the right lateral breast.. Adequacy was assessed by fast stain technique for both. The procedure was tolerated well without complications. Immunohistochemical stains for ER, CT and HER-2 on formalin fixed cell block material are pending for part 1 and will be reported in an addendum. Dr. Elder has reviewed this case and concurs. Dr. Bernard was informed of these results on 07/12/2013 at approximately 4 PM. #1. BREAST RIGHT - RIGHT BREAST MASS AT 1200 O'CLOCK FINE NEEDLE ASPIRATION BY PALPA, #2. BREAST RIGHT - RIGHT BREAST MASS AT 1000 O'CLOCK FINE NEEDLE ASPIRATION BY PALPA CLINICAL HISTORY #1) Right breast at 1200 o'clock, 3cm mobile soft mass. #2) Right breast at 1000 o'clock,8 cm from areola. IMMEDIATE INTERPRETATION 1) Pass 1-adequate 2) Pass 1-adequate CONTINUED ON NEXT PAGE * ML=Testing performed at Main Lab DEPARTMENT OF PATHOLOGY, [address] [place] [address] Hernan Flores M.D. Director [facility] # [id number] RUN DATE: 09/12/15 [facility] LAB LIVE PAGE 3 Patient: NEGAR HYATTANUP Farrell [id number] (Continued) GROSS DESCRIPTION (Continued) GROSS DESCRIPTION #1) Fine needle aspiration by palpation x 1 pass with 2 Alcohol fixed slide( s) and needle rinse in formalin for cell block. #2) Fine needle aspiration by palpation x 1 with 2 Alcohol fixed slide(s). Signed (signature on file) Hernan Flores MD 1309 END OF REPORT * ML=Testing performed at Main Lab DEPARTMENT OF PATHOLOGY, [address] [place] [address] Hernan Flores M.D. Director [facility] # [id number] Procedures Date Code Description Status 09/02/2017 [id number] Mammogram Completed 04/17/2017 [id number] Colonoscopy Completed 09/01/2016 [id number] Mammogram Completed 04/15/2016 [id number] Bone Mineral Density Test Completed 08/31/2015 [id number] Mammogram Completed Encounters Type Date Location Provider Dx Diagnosis Office Visit 09/01/2017 [facility] Trini Mann, M17.0 Bilateral primary 2:00p M.D. osteoarthritis of knee R73.01 Impaired fasting glucose D23.4 Other benign neoplasm of skin of scalp and neck Office Visit 04/29/2017 4:20p [facility] Trini Mann, M17.0 Bilateral primary M.D. osteoarthritis of knee R73.01 Impaired fasting glucose Z85.3 Personal history of malignant neoplasm of breast R03.0 Elevated blood-pressure reading, w/o diagnosis of htn E66.9 Obesity, unspecified E78.1 Pure hyperglyceridemia Office Visit 02/25/2017 8:20a [facility] Trini Johnathan, Z00.01 Encounter for M.D. general adult medical exam w abnormal findings Z85.3 Personal history of malignant neoplasm of breast R73.01 Impaired fasting glucose M17.0 Bilateral primary osteoarthritis of knee R03.0 Elevated blood-pressure reading, w/o diagnosis of htn Z23 Encounter for immunization Office Visit 12/19/2016 4:40p [facility] Trini Mann, Z85.3 Personal history M.D. of malignant neoplasm of breast R73.01 Impaired fasting glucose E78.1 Pure hyperglyceridemia M17.0 Bilateral primary osteoarthritis of knee Z12.11 Encounter for screening for malignant neoplasm of colon Office Visit 08/30/2015 2:00p Main Office Ewelina Clancy3 Unspecified lump in [place], ALL PURPOSE CLERK breast Office Visit 06/18/2011 1:20p Main Office Gilbert Wood.9 OSMAN Maria M.D. Respiratory Infections Acute Unspec Sites Office Visit 09/27/2007 2:00p Main Office Preethi Kaufman, 465.9 URI Upper Afnp-C Respiratory Infections Acute Unspec Sites 381.01 Otitis Media Serous Acute Office Visit 02/04/2005 10:15a [facility] Preethi 465.9 URI Upper Mandeep, Afnp-C Respiratory Infections Acute Unspec Sites 382.9 Otitis Media Unspec Office Visit 06/10/2004 1:30p Main Office Rhoda Quick, AMALIA 486 Pneumonia Organism Unspec Plan of Treatment Future Appointment(s):12/28/2018 2:00 pm - Trini Mann M.D. at [facility] Uctumf4310/04/2018 - Trini Mann M.D.Z01.818 Encounter for other preprocedural examinationComments:Cleared for surgery. Will fax note to ordering physician. HOLD NSAIDS and supplements 5-7 days prior to sypcpbrS48.0 Bilateral primary osteoarthritis of kneeComments:clear for svwdloiJ79.01 Impaired fasting glucoseNew Labs:Comp Metabolic-[facility], Ordered: 10/04/18Lipid Panel- [facility], Ordered: 10/04/18Hemoglobin A1c ([facility]), Ordered: Microalb, Random ([facility]), Ordered: 10/04/18CBC Electronic-[facility], Ordered: 10/04/18TSH ([facility]), Ordered: 10/04/18Free T4 ([facility]/ [facility]), Ordered: 10/04/18Ua - Micro ([facility]), Ordered: 10/04/18Comments: Counseled on heart healthy diet and exercise including limiting carbs and portion control and at least 30 minutes of physical activity daily. Consider Mediterranean diet as a guide for healthy eating. A1c> 6.5 is diagnostic of diabetesFollow up:fasting labs before physical in DecemberZ85.3 Personal history of malignant neoplasm of breastComments:sees Dr Ball remission ; on pqojdxxbnL66.711 Personal history of pulmonary embolismComments:will need post - op anticoagulationAllComments:Medication Management Patient Understands medications she's taking? Yes No Are there Barriers to Adherence? Yes No Has the patient been asked about herbal supplements and therapies, and OTC meds? Yes No
--- OUTSIDE RECORDS SUMMARY | 2018-10-21 05:57 | XMS REPORT | Continuity of Care Document ---
:1955 External Reference #:[id number] Author Name UYEN Menjivar Address [address] , [place] [address] Care Team Providers Name Role Phone Trini Mann MD Primary Care Physician Unavailable Payers Date Identification Numbers Payment Provider Subscriber Effective: 2016 Policy Number: [id number] BS Facets Sweta Benton PayID: [id number] [facility] [id number] [place] [address] Advance Directives Description No Information Available Problems [...] Description Comments Sex Unknown Marital Status Occupation rehabilitation services aide No pets in home Cigarette Use [...] Date Facility Test Result H/L Range Note Urine Microalbumin 10/13/2018 [facility] Ur Microalbumin < 15.0 mg/L [address] (mg/L) [place] [address] [phone] Urine Creatinine 32.86 mg/dL Urine Microalbumin/Creatinine TNP <31 2 Lipid Profile 10/13/2018 [facility] Triglycerides 180 mg/dL 3 (Trig/Chol/HDL) [address] [place] [address] [phone] Cholesterol 185 mg/dL 4 HDL Cholesterol 38.6 mg/dL 5 LDL Cholesterol 110 mg/dL 6 Laboratory test 10/13/2018 [facility] TSH (Thyroid 2.17 mcIU/mL N 0.34-5.60 [address] Stim [place]orm) [place] [address] [phone] Free T4 (Free Thyroxine) 1.01 ng/dL N 0.61-1.12 8 Hemoglobin A1c (Glyco HGB) 5.8 % High 4.0-5.6 9 Inr/Protime 10/13/2018 [facility] Inr 0.96 N 0.82-1.[address] [place] [address] [phone] Laboratory test 10/13/2018 [facility] Partial 29.0 seconds N 26.0-36.3 [address] [place] [address] PTT [phone] CBC Auto Diff 10/13/2018 [facility] White Blood 6.1 10^3/uL N 3.5-10.[address] [place] [address] [phone] Red Blood Count 4.97 10^6/uL High 3.70-4.87 Hemoglobin 15.1 g/dL N 12.0-16.0 Hematocrit 46 % N 35-47 Mean Corpuscular Volume 93 fL N 80-97 Mean Corpuscular Hemoglobin 30 pg N 27-31 Mean Corpuscular HGB Conc 33 g/dL N 31-36 Red Cell Distribution Width 14 % N 10.5-15 Platelet Count 180 10^3/uL N 150-450 Mean Platelet Volume 9.9 fL N 7.4-10.4 Abs Neutrophils 4.4 10^3/uL N 1.5-7.7 Abs Lymphocytes 1.3 10^3/uL N 1.0-4.8 Abs Monocytes 0.4 10^3/uL N 0-0.8 Abs Eosinophils 0.1 10^3/uL N 0-0.6 Abs Basophils 0 10^3/uL N 0-0.2 Abs Nucleated RBC 0 10^3/uL Granulocyte % 70.8 % Lymphocyte % 20.4 % Monocyte % 6.8 % Eosinophil % 1.4 % Basophil % 0.6 % Nucleated Red Blood Cells % 0.1 Comp Metabolic Panel 10/13/2018 [facility] Sodium 141 mmol/L N 135-[address] [place] [address] [phone] Potassium 4.1 mmol/L N 3.5-5.0 Chloride 106 mmol/L N 101-111 Co2 Carbon Dioxide 26 mmol/L N 22-32 Anion Gap 9 mmol/L N 2-11 Glucose 91 mg/dL N 70-100 Blood Urea Nitrogen 11 mg/dL N 6-24 Creatinine 0.67 mg/dL N 0.51-0.95 BUN/Creatinine Ratio 16.4 N 8-20 Calcium 9.7 mg/dL N 8.6-10.3 Total Protein 6.7 g/dL N 6.4-8.9 Albumin 4.3 g/dL N 3.2-5.2 Globulin 2.4 g/dL N 2-4 Albumin/Globulin Ratio 1.8 N 1-3 Total Bilirubin 0.70 mg/dL N 0.2-1.0 Alkaline Phosphatase 94 U/L N 34-104 Alt 32 U/L N 7-52 Ast 25 U/L N 13-39 Egfr Non- 88.9 >60 Egfr 107.6 >60 12 Urinalysis Profile 10/13/2018 [facility] Urine Color Straw [address] [place] [address] [phone] Urine Appearance Clear Urine Specific [place] 1.005 Low 1.010-1.030 Urine pH 5.0 N 5-9 Urine Urobilinogen Negative Negative Urine Ketones Trace Abnormal Negative Urine Protein Negative Negative Urine Leukocytes Negative Negative Urine Blood Negative Negative Urine Nitrite Negative Negative Urine Bilirubin Negative Negative Urine Glucose Negative Negative Type & Screen 10/13/2018 [facility] Antibody Screen NEGATIVE [address] [place] [address] [phone] Patient Blood Type A Negative CBC Auto Diff 03/04/2016 [facility] White Blood 7.0 10^3/uL N 3.5-10.[address] [place] [address] [phone] Red Blood Count 4.11 10^6/uL N 4.0-5.4 [...] % 0 N Basic Metabolic Panel 03/04/2016 [facility] Sodium 139 mmol/L N 133-[address] [place] [address] [phone] Potassium 4.1 mmol/L N 3.5-5.0 Chloride 105 mmol/L N 101-111 Co2 Carbon Dioxide 27 mmol/L N 22-32 Anion Gap 7 mmol/L N 2-11 Glucose 88 mg/dL N 70-100 Blood Urea Nitrogen 10 mg/dL N 6-24 Creatinine 0.64 mg/dL N 0.51-0.95 BUN/Creatinine Ratio 15.6 N 8-20 Calcium 9.4 mg/dL N 8.6-10.3 Egfr Non- 94.7 N >60 Egfr 121.7 N >60 14 1 10/21 2 Unable to calculate due to low microalbumin 3 Desirable: <150 Borderline High: 150-199 High: 200-499 Very High: >500 4 Desirable: <200 Borderline High: 200-239 High: >239 5 Low: <40 Desirable: 40-60 High: >60 6 Desirable: <100 Near Optimal: 100-129 Borderline High: 130-159 High: 160-189 Very High: >189 7 FASTING 8 FASTING 9 Therapeutic target for the treatment of diabetes mellitus patients is <7% HBA1C, and in selective patients <6.0%. Please refer to [place] [employer] diabetic care guidelines for further information. 10 Standard intensity warfarin therapeutic range: 2.0-3.0 High intensity warfarin therapeutic range: 2.5-3.5 11 10/21 12 Because ethnic data is not always readily [...] 15-29 5 Kidney failure <15 (or dialysis) 13 AA 03/14 14 Because ethnic data is not always readily [...] dialysis) Procedures Date Code Description Status 10/13/2017 99388 Excision Benign Lesion Incl Diameter 1.1 - 2.0 CM Completed Scalp,Neck,Hand 03/04/2016 91133 EKG, Interpretation Only Completed 01/24/2016 05320 ECHO Transthoracic, Real-Time 2D With Doppler And Color Completed Flow 12/24/2015 93453 Sleep Study Unattended,HRT Rate,Oxygen Sat,Resp Completed Effort/Airflow 10/30/2015 24101 ECHO Transthorasic Realtime 2D W Doppler & Color Flow Completed Hosp 08/31/2015 50558682 Mammogram Completed Encounters Type Date Location Provider Dx Diagnosis Office Visit 09/27/2018 Orthopedic Carolyn العلي, M17.0 Bilateral primary 8:30a [facility] osteoarthritis of knee Z68.41 Body mass index (BMI) 40.0-44.9, adult E66.01 Morbid (severe) obesity due to excess calories M25.562 Pain in left knee M25.561 Pain in right knee M25.462 Effusion, left knee M25.461 Effusion, right knee Office Visit 07/05/2018 3:00p [facility] Carolyn العلي, M25.562 Pain in left [facility] knee M25.561 Pain in right knee M25.462 Effusion, left knee M25.461 Effusion, right knee M17.0 Bilateral primary osteoarthritis of knee E66.01 Morbid (severe) obesity due to excess calories Z68.41 Body mass index (BMI) 40.0-44.9, adult Office Visit 09/29/2017 1:30p Surgical Natali Nehemiah L72.3 Sebaceous cyst [facility] MD Marco Antonio Office Visit 08/28/2016 2:30p Pulmonology And Brandee G47.33 Obstructive sleep [facility] apnea (adult) [facility] (pediatric) E66.09 Other obesity due to excess calories Z68.41 Body mass index (BMI) 40.0-44.9, adult Office Visit 01/15/2016 3:45p [facility] Brand[facility] G47.33 Obstructive sleep [facility] apnea (adult) [facility] (pediatric) E66.09 Other obesity due to excess calories Office Visit 12/12/2015 8:45a [facility] Brandee Ramirez, R06.83 [facility] E66.01 Morbid (severe) obesity due to excess calories Plan of Treatment Future Appointment(s):10/21/2018 11:45 am - LAKESHA Diggs at [facility]11/03/2018 8:45 am - Carolyn العلي M.D. at [facility]10/21/2018 11:45 am - UYEN Menjivar at [facility]10/21/2018 11:45 am - Carolyn العلي M.D. at [facility]10/13/2018 - Carolyn العلي M.D.M17.0 Bilateral primary osteoarthritis of kneeFollow up:Follow up: 2 weeks after [id number] Effusion, right kneeM25.561 Pain in right knee
--- OUTSIDE RECORDS SUMMARY | 2018-10-21 05:58 | XMS REPORT | Continuity of Care Document ---
:1955 External Reference #:[id number] Author Name Mary Brooke Care Team Providers Name Role Phone Trini Mann MD Primary Care Physician Unavailable Payers Date Identification Numbers Payment Provider Subscriber Effective: 2016 Policy Number: [id number] BS Facets Sweta Benton PayID: [id number] [address] [address] [place] [address] Advance Directives Description No Information Available Problems Date Description Provider Status Onset: 07/05/2018 Localized, primary osteoarthritis Carolyn اللعي M.D. 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 pets in home Cigarette Use Quit 33 Years Ago ETOH Use Denies alcohol use Tobacco Use Start: Unknown End: Patient is a former Unknown smoker Smoking Status Reviewed: 09/27/18 Patient is a former smoker Exercise Type/Frequency Exercises regularly walks Allergies, Adverse Reactions, Alerts Date Description Reaction Status Severity Comments 12/12/2015 Macrodantin Active Medications Medication Date Status Form Strength Qnty SIG Indications Ordering Provider Letrozole 09/04/19 Active Tablets 2.5mg 1 by Unknown 17 mouth daily Vitamin D3 03/22/20 Active Tablets 2000Unit 2 by Unknown 17 mouth every day Mandibular 01/15/20 Active Device dear , G47.33 Brandee Advancement 16 please James, Device evaluate and fabricate oral appliance for mild sleep apnea Celebrex 09/04/19 Hx Capsules 100mg 1 tab by Unknown 17 - mouth a Unknown day as needed Coumadin 01/24/20 Hx Solution 5mg as Unknown 16 - Rec directed Unknown Lovenox 01/24/20 Hx Solution 100mg/ml 1 Unknown 16 - subcutane Unknown ously every 12 hours as directed Multi Adult 12/11/19 Hx Chewtabs 1 by Unknown Gummies 16 - mouth Unknown every day Emend 12/11/19 Hx Capsules 125mg As Unknown 16 - directed Unknown Dexamethasone 12/11/19 Hx Tablets 4mg As Unknown 16 - directed Unknown Prochlorperazine Hx Tablets 10mg take 1 Unknown Maleate 00 - tablet by Unknown mouth three times a day as needed Ondansetron HCL Hx Tablets 4mg one by Unknown 00 - mouth Unknown every 8 hours as needed for nausea Xarelto Hx Tablets 20mg 1 by Unknown 00 - mouth Unknown every day Immunizations Description No Information Available Vital Signs Date Vital Result Comment 09/27/2018 8:17am Height 60 inches 5'0" Weight [...] H/L Range Note CBC Auto Diff 03/04/2016 [facility] White Blood 7.0 10^3/uL N 3.5-10.[address] [place] [address] [phone] Red Blood Count 4.11 10^6/uL N 4.0-5.4 [...] % 0 N Basic Metabolic Panel 03/04/2016 [facility] Sodium 139 mmol/L N 133-[address] [place] [address] [phone] Potassium 4.1 mmol/L N 3.5-5.0 Chloride 105 [...] dialysis) Procedures Date Code Description Status 10/13/2017 39260 Excision Benign Lesion Incl Diameter 1.1 - 2.0 CM Completed Scalp,Neck,Hand 03/04/2016 19212 EKG, Interpretation Only Completed 01/24/2016 57621 ECHO Transthoracic, Real-Time 2D With Doppler And Color Completed Flow 12/24/2015 59141 Sleep Study Unattended,HRT Rate,Oxygen Sat,Resp Completed Effort/Airflow 10/30/2015 90164 ECHO Transthorasic Realtime 2D W Doppler & Color Flow Completed Hosp 08/31/2015 [id number] Mammogram Completed Encounters Type Date Location Provider Dx Diagnosis Office Visit 07/05/2018 Orthopedic Carolyn العلي, M25.562 Pain in left knee 3:00p [facility] Gal[facility] M25.561 Pain in right knee M25.462 Effusion, left knee M25.461 Effusion, right knee M17.0 Bilateral primary osteoarthritis of knee E66.01 Morbid (severe) obesity due to excess calories Z68.41 Body mass index (BMI) 40.0-44.9, adult Office Visit 09/29/2017 1:30p Surgical Natali Nehemiah L72.3 Sebaceous cyst [facility] MD Marco Antonio Office Visit 08/28/2016 2:30p Pulmonology And Brandee G47.33 Obstructive sleep [facility] apnea (adult) [facility] (pediatric) E66.09 Other obesity due to excess calories Z68.41 Body mass index (BMI) 40.0-44.9, adult Office Visit 01/15/2016 3:45p Pulmonology And Brandee G47.33 Obstructive sleep [facility] apnea (adult) [facility] (pediatric) E66.09 Other obesity due to excess calories Office Visit 12/12/2015 8:45a [facility] Brandee Ramirez, R06.83 [facility] E66.01 Morbid (severe) obesity due to excess calories Plan of Treatment Future Appointment(s):10/08/2018 10:45 am - Carolyn العلي M.D. at [facility]09/27/2018 - Carolyn العلي M.D.M25.562 Pain in left kneeNew Xrays:Knee 3 Views Bilateral, Ordered: 09/27/18Follow up:Follow up: 7-10 days before [id number] Pain in right kneeNew Xrays:Knee 3 Views Bilateral, Ordered: 09/27/18M25.462 Effusion, left kneeM25.461 Effusion, right kneeM17.0 Bilateral primary osteoarthritis of knee
[2018-10-21] MEDS ORDERED: Lactated Ringers 1000 ML Bag* 1,000 ML IV SCH (06:00)
[2018-10-21] MEDS ORDERED: Famotidine IV* 10 MG/ML 2 ML (20 mg) IV ONE (06:00)
[2018-10-21] MEDS ORDERED: Gabapentin CAP(*) 300 MG PO ONE (06:00)
[2018-10-21] MEDS ORDERED: Gabapentin CAP(*) 300 MG ONE (06:14)
[2018-10-21] MEDS ORDERED: ceFAZolin 2 GM PREMIX in ORs 2 GM/50 ML BAG IVPB ONE (06:14)
[2018-10-21] MEDS ORDERED: Famotidine IV* 10 MG/ML 2 ML (20 mg) ONE (06:14)
[2018-10-21] MEDS ORDERED: Midazolam* 1 MG/ML 5 ML VIAL (5 MG) ONE (07:34)
[2018-10-21] MEDS ORDERED: fentaNYL* 50 MCG/ML 2 ML VIAL (100 MCG VIAL) ONE ×2 (07:34→08:38)
[2018-10-21] MEDS ORDERED: Lidocaine 1%* 5 ML VIAL ONE (07:34)
[2018-10-21] MEDS ORDERED: ROPIVACAINE 5 MG/ML 30 ML BTL (0.5%) ONE ×3 (07:34→10:30)
[2018-10-21] MEDS ORDERED: Rocuronium* 10 MG/ML VIAL ONE (07:59)
[2018-10-21] MEDS ORDERED: KETAMINE HCL* 50 MG/ML 10 ML VIAL ONE (08:09)
[2018-10-21] MEDS ORDERED: oxyCODONE TAB* 5 MG TAB PO PRN (08:50)
[2018-10-21] MEDS ORDERED: Acetaminophen IV 1GM/100ML * 1,000 MG/100 ML VIAL IVPB ONE (08:50)
[2018-10-21] MEDS ORDERED: Naloxone* 0.4 MG/ML 1 ML VIAL IV PRN (08:50)
[2018-10-21] MEDS ORDERED: DiMENhydriNATE IV* 50 MG/ML VIAL IV PUSH PRN (08:50)
[2018-10-21] MEDS ORDERED: Gabapentin CAP(*) 100 MG PO ONE (08:51)
[2018-10-21] MEDS ORDERED: Ketorolac INJ* 30 MG/ML 1 ML VIAL ONE (08:59)
[2018-10-21] MEDS ORDERED: Ondansetron INJ* 2 MG/ML VIAL ONE (08:59)
[2018-10-21] MEDS ORDERED: Dexamethasone IV* 4 MG/ML 1 ML (4 MG) ONE (08:59)
[2018-10-21] MEDS ORDERED: DiMENhydriNATE IV* 50 MG/ML VIAL ONE (08:59)
[2018-10-21] MEDS ORDERED: EPHEDrine (Pressors)* 50 MG/ML VIAL ONE (09:02)
[2018-10-21] MEDS ORDERED: Propofol* 10 MG/ML 20 ML BTL ONE (09:02)
[2018-10-21] MEDS ORDERED: Glycopyrrolate IV* 0.2 MG/ML 1 ML VIAL ONE (09:02)
[2018-10-21] MEDS ORDERED: Succinylcholine* 20 MG/ML 10 ML VIAL ONE (09:02)
[2018-10-21] MEDS ORDERED: Lidocaine 2% PF * 5 ML VIAL ONE (09:03)
[2018-10-21] MEDS ORDERED: HYDROmorphone INJ1* 1 MG/ML SYRINGE ONE ×3 (09:50→10:49)
[2018-10-21] MEDS ORDERED: oxyCODONE/Acetamin 5/325 MG* TAB PO PRN (10:51)
[2018-10-21] MEDS ORDERED: Bisacodyl SUPP* 10 MG SUPP PR PRN (10:51)
[2018-10-21] MEDS ORDERED: Morphine 4 MG/ML VIAL (1 ml) 4 MG/ML VIAL IV PRN (10:51)
[2018-10-21] MEDS ORDERED: Magnesium Hydroxide LIQ* 30 ML UDC PO PRN (10:51)
[2018-10-21] MEDS ORDERED: diPHENhydraMINE PO* 25 MG PO PRN (10:51)
[2018-10-21] MEDS: HYDROmorphone INJ1* 1 MG/ML SYRINGE IV PRN ×3 (10:53→11:33)
[2018-10-21] MEDS ORDERED: oxyCODONE TAB* 5 MG TAB ONE (11:12)
[2018-10-21] MEDS ORDERED: Acetaminophen IV 1GM/100ML * 100 ML ONE (11:12)
[2018-10-21] MEDS ORDERED: Gabapentin CAP(*) 100 MG ONE (11:42)
[2018-10-21] MEDS: oxyCODONE/Acetamin 5/325 MG* TAB PO PRN ×2 (12:52→22:09)
[2018-10-21] MEDS: Acetaminophen TAB* 325 MG PO SCH ×2 (13:27→22:08)
[2018-10-21] MEDS: Lactated Ringers 1000 ML Bag* 1,000 ML IV SCH ×2 (13:31→22:32)
[2018-10-21] MEDS: Ondansetron INJ* 2 MG/ML VIAL IV PRN (13:39)
[2018-10-21] MEDS: ceFAZolin 1 GM ADVAN(*) 1 GM in NS 0.9% 50 ML* 50 ML IVPB SCH ×2 (15:52→23:26)
--- NOTE | 2018-10-21 17:00 | PN ---
Progress Note - Progress Note Date of Service: 10/21/18 Note: OOB to chair, complaints of N/V. pain well controlled. able to dorsi flex/ plantar flex, 2+ DP and intact sensation. dressing C/D/I
[2018-10-21] MEDS: PROCHLORPERAZINE INJ 5 MG/ML 2 ML VIAL IV PRN (17:05)
--- NOTE | 2018-10-21 18:43 | OP ---
Operative Report - Blank - Operative Report Date of Operation: 10/21/18 Note: AIMEE HYATT 1955 Date of Surgery: 10/21/18 Carolyn العلي MD Tour Leader: Zachary QIU did help throughout the procedure with preparation of the knee, wound retraction, manipulation of the knee, and wound closure. Anesthesiologist: Dr. Hernandez Anesthesia Type: Spinal Preoperative Diagnosis: Right severe degenerative osteoarthritis of the knee Postoperative Diagnosis: As above Procedure Performed: Right Total Knee Arthroplasty Tourniquet time: 44 minutes Complications: None Specimen: Bone and cartilage from the right knee joint sent to pathology. Hardware Used: Cemented Payan [employer] Nephew total knee hardware was used - For the femur a size 4 narrow right oxinium legion posterior stabilized femoral component, for the tibia a size 3 right carola II tibial baseplate, for the insert a size 11 mm 3-4 posterior stabilized articular polyethylene insert, and for the patella a size 29 3-peg all poly patella. Brief History/Indication: AIMEE HYATT was known in clinic and had a history of severe right knee pain and swelling. She failed conservative treatment with anti-inflammatories, pain pills, intra-articular injections and physical therapy. She elected to undergo right total knee arthroplasty due to continued pain and decreased quality of life. Radiographs showed severe end stage osteoarthritis of the knee with bone on bone contact. Informed consent was obtained from the patient. She understood the risks of surgery included but were not limited to: bleeding, infection, damage to nearby structures, intraoperative fracture, nerve palsy, failure of the hardware, early loosening, knee stiffness or loss of motion, anesthesia complications, stroke, heart attack , blood clot and . She wished to proceed. Intra-Operative Findings: Intraoperatively the patient was noted to have severe loss of cartilage in all 3 compartments of the knee. Description of the Procedure: AIMEE HYATT was identified in the preanesthesia unit. Her right knee was marked as the correct operative side. Informed consent was signed and placed in the chart. The patient was taken to the operating room and placed under anesthesia without complication. A davison catheter was placed. A tourniquet was placed on the right thigh. The right lower extremity was prepped and draped in the usual sterile fashion. Preoperative time-out was made to correctly identify the patient, side and site. Appropriate intraoperative antibiotics were given within one hour of incision. Tourniquet was inflated. A midline incision was made and carried sharply down to the extensor mechanism. A new 10 blade was used to make a standard medial parapatellar arthrotomy. The patella was subluxed laterally. Electrocautery was used to dissect soft tissue off the superomedial tibia to the midsagittal plane. The knee was flexed up. The anterior horn of the lateral meniscus and the ACL were sharply incised. A drill was used to enter the distal femur. The intramedullary distal femoral cutting guide was pinned on the distal femur. The oscillating saw was used to make the distal femoral cut. The external rotation guide was pinned on the distal femur and the distal femur was sized to a size 4. The size 4 multi-cutting jig was pinned on the distal femur. The oscillating saw was used to make the appropriate 4 chamfer cuts. Next the PCL was completely released. The extramedullary tibial cutting guide was pinned on the proximal tibia and the oscillating saw was used to make the proximal tibial cut perpendicular to the mechanical axis of the tibia. The bone was carefully removed. The knee was brought out into full extension. The spacer block was placed and had excellent fit with the knee in full extension. The medial and lateral ligaments were well balanced. The flexion and extension gaps were well balanced. The knee was flexed up. Lamina network diagnostic support specialist was placed both medially and laterally. Any remaining meniscus was removed with electrocautery. Curved osteotome was used to remove any posterior osteophytes. The tibial tray and drop emilia were placed and confirmed a satisfactory tibial cut. The size 4 right narrow femoral trial was impacted onto the distal femur. This trial had excellent fit and stability. The box for the posterior stabilized implant was prepared using a box cut osteotome and a reamer. Next a tibial tray trial and 9 mm insert trial was placed. The knee was taken through a range of motion and had full extension to 130 degrees of flexion. Patellofemoral tracking was satisfactory. The patella was inverted and sized to a size 29. Three peg holes were drilled through the size 29 drill guide. The trial patella was placed and the knee was taken through a range of motion. There was satisfactory patellofemoral tracking. All trials were removed. The tibia was subluxed anteriorly and sized to a size 3. The proximal tibial was prepared with a size 3 keel punch. All bony cut surfaces were irrigated with sterile saline and dried. Final implants were cemented into place starting with the tibia, followed by the femur, and last the patella. A 9 mm insert trial was placed and the knee was brought into full extension. Tourniquet was turned down and the knee was copiously irrigated with sterile saline. Electrocautery was used to obtain meticulous hemostasis. Once the cement had fully cured, the insert trial was removed. Any excess cement was removed from around the hardware and capsule. Final insert chosen was a 11 mm posterior stabilized Carola II articular insert size 3-4. Stability of the insert was checked and noted to be stable. The extensor mechanism was closed using number 1 vicryls. The rest of the incision was closed in a layered fashion using 0 and 2-0 vicryls. The skin was closed using 3-0 nylon suture. Sterile xeroform, 4x4s and webril were used to cover the incision. Les wrap and cold pack were used to cover the dressings. The patients anesthesia was reversed without difficulty. She was taken to the PACU in stable condition. Intended weight-bearing will be as tolerated.
[2018-10-21] MEDS: oxyCODONE TAB* 5 MG TAB PO PRN (18:56)
[2018-10-21] MEDS: Magnesium Hydroxide LIQ* 30 ML UDC PO SCH (22:10)
[2018-10-21] MEDS: Docusate CAP* 100 MG PO SCH (22:10)
[2018-10-22] MEDS: Acetaminophen TAB* 325 MG PO SCH ×3 (03:22→17:55)
[2018-10-22] MEDS: oxyCODONE/Acetamin 5/325 MG* TAB PO PRN ×2 (05:45→13:18)
[2018-10-22 06:40] LABS: Hematocrit 36 % (35-47); Hemoglobin 11.6 g/dL (12.0-16.0); Platelet Count 131 10^3/uL (150-450)
[2018-10-22 06:55] LABS: CO2 Carbon Dioxide 27 mmol/L (22-32); Chloride 105 mmol/L (101-111); Sodium 139 mmol/L (135-145)
[2018-10-22 07:01] LABS: BUN/Creatinine Ratio 13.1 (8-20); Blood Urea Nitrogen 11 mg/dL (6-24); EGFR African American 82.9 (>60); EGFR Non-African American 68.5 (>60); Glucose 138 mg/dL (70-100)
[2018-10-22 07:04] LABS: Anion Gap 7 mmol/L (2-11)
[2018-10-22] MEDS: ceFAZolin 1 GM ADVAN(*) 1 GM in NS 0.9% 50 ML* 50 ML IVPB SCH (08:34)
[2018-10-22] MEDS: Magnesium Hydroxide LIQ* 30 ML UDC PO SCH ×2 (08:34→20:36)
[2018-10-22] MEDS: Cholecalciferol TAB* 1000 UNITS PO SCH (08:35)
[2018-10-22] MEDS: Vitamin THERAPEUTIC TAB PO SCH (08:35)
[2018-10-22] MEDS: Docusate CAP* 100 MG PO SCH ×2 (08:35→20:36)
[2018-10-22] MEDS: Apixaban* 2.5 MG TAB PO SCH ×2 (08:35→20:36)
[2018-10-22] MEDS: Ondansetron INJ* 2 MG/ML VIAL IV PRN ×2 (09:01→15:41)
[2018-10-22] MEDS: oxyCODONE TAB* 5 MG TAB PO PRN ×2 (09:57→15:46)
[2018-10-22] MEDS ORDERED: Scopolamine 1.5 mg* PATCH TRANSDERM SCH (11:00)
[2018-10-22] MEDS: PROCHLORPERAZINE INJ 5 MG/ML 2 ML VIAL IV PRN (11:07)
--- NOTE | 2018-10-22 11:18 | PN ---
Progress Note - Progress Note Date of Service: 10/22/18 SOAP: Subjective: OOB to chair. continues to have significant nausea, pain well controlled Objective: Vital Signs Temp Pulse Resp BP Pulse Ox 0 F 67 18 125/55 93 10/22/18 09:55 10/22/18 09:55 10/22/18 09:57 10/22/18 09:55 10/22/18 03:38 Laboratory Last Values Hgb 11.6 g/dL (12.0-16.0) L 10/22/18 06:18 Hct 36 % (35-47) 10/22/18 06:18 Plt Count 131 10^3/uL (150-450) L 10/22/18 06:18 MPV 10.0 fL (7.4-10.4) 10/22/18 06:18 Sodium 139 mmol/L (135-145) 10/22/18 06:18 Potassium 4.2 mmol/L (3.5-5.0) 10/22/18 07:23 Chloride 105 mmol/L (101-111) 10/22/18 06:18 Carbon Dioxide 27 mmol/L (22-32) 10/22/18 06:18 Anion Gap 7 mmol/L (2-11) 10/22/18 06:18 BUN 11 mg/dL (6-24) 10/22/18 06:18 Creatinine 0.84 mg/dL (0.51-0.95) 10/22/18 06:18 Est GFR ( Amer) 82.9 (>60) 10/22/18 06:18 Est GFR (Non-Af Amer) 68.5 (>60) 10/22/18 06:18 BUN/Creatinine Ratio 13.1 (8-20) 10/22/18 06:18 Glucose 138 mg/dL (70-100) H 10/22/18 06:18 Calcium 9.0 mg/dL (8.6-10.3) 10/22/18 06:18 incision: c/d/i PE:NVI Assessment: s/p right TKA Plan: 1) PT/OT-WBAT 2) abx for 24 hours post-op 3) will change DVT prophylaxis to Xarelto 20mg po QD starting 10/23 4) Home possible this pm after PT, if nausea improved; added Scopolamine patch
[2018-10-23] MEDS: Acetaminophen TAB* 325 MG PO SCH ×3 (04:54→18:37)
[2018-10-23 07:10] LABS: Hematocrit 32 % (35-47); Hemoglobin 10.6 g/dL (12.0-16.0); Mean Platelet Volume 9.4 fL (7.4-10.4); Platelet Count 160 10^3/uL (150-450)
[2018-10-23] MEDS: oxyCODONE/Acetamin 5/325 MG* TAB PO PRN ×3 (08:13→18:34)
[2018-10-23] MEDS: Vitamin THERAPEUTIC TAB PO SCH (08:50)
[2018-10-23] MEDS: Docusate CAP* 100 MG PO SCH ×2 (08:50→21:39)
[2018-10-23] MEDS: Magnesium Hydroxide LIQ* 30 ML UDC PO SCH ×2 (08:50→21:39)
[2018-10-23] MEDS: Rivaroxaban TAB(*) 20 MG TAB PO SCH (08:50)
[2018-10-23] MEDS: Cholecalciferol TAB* 1000 UNITS PO SCH (08:50)
--- NOTE | 2018-10-23 10:16 | PN ---
Progress Note - Progress Note Date of Service: 10/23/18 SOAP: Subjective: Per nursing, Pt c/o CP this AM. When pt seen at bedside, she had no c/o CP, SOB. States she felt like it was just indigestion. EKG was ordered. Pain is well controlled with pain medication. Vital Signs: Temp Pulse Resp BP Pulse Ox 99.0 F 77 20 119/62 95 10/23/18 07:20 10/23/18 07:34 10/23/18 08:13 10/23/18 07:20 10/23/18 07:34 Laboratory Last Values Hgb 10.6 g/dL (12.0-16.0) L 10/23/18 06:53 Hct 32 % (35-47) L 10/23/18 06:53 Plt Count 160 10^3/uL (150-450) 10/23/18 06:53 MPV 9.4 fL (7.4-10.4) 10/23/18 06:53 Sodium 139 mmol/L (135-145) 10/22/18 06:18 Potassium 4.2 mmol/L (3.5-5.0) 10/22/18 07:23 Chloride 105 mmol/L (101-111) 10/22/18 06:18 Carbon Dioxide 27 mmol/L (22-32) 10/22/18 06:18 Anion Gap 7 mmol/L (2-11) 10/22/18 06:18 BUN 11 mg/dL (6-24) 10/22/18 06:18 Creatinine 0.84 mg/dL (0.51-0.95) 10/22/18 06:18 Est GFR ( Amer) 82.9 (>60) 10/22/18 06:18 Est GFR (Non-Af Amer) 68.5 (>60) 10/22/18 06:18 BUN/Creatinine Ratio 13.1 (8-20) 10/22/18 06:18 Glucose 138 mg/dL (70-100) H 10/22/18 06:18 Calcium 9.0 mg/dL (8.6-10.3) 10/22/18 06:18 Objective: A&O x3, NAD, Dressing C/D/I, Calves soft, mild calf tenderness, No edema, NVI distally Assessment: 63 yo female s/p right TKA POD #2 Plan: OOB PT/OT Pain control CP - EKG and triponins ordered. Hospitalist consult contacted D/C home likely tomorrow if cleared by medicine
--- NOTE | 2018-10-23 13:15 | CONS ---
CONSULTATION NOTE: DATE OF CONSULT: 10/23/18 REASON FOR CONSULT: Chest pain. HISTORY OF PRESENT ILLNESS: The patient is a 63-year-old lady with previous history of breast cancer, PE presumed due to malignancy, now on remission, mild sleep apnea, not on CPAP, who was admitted for an elective right total knee arthroplasty due to end-stage osteoarthritis of her aforementioned knee. She has had relatively unremarkable perioperative course until a few hours prior to her planned discharge when she complained of some right-sided chest pain. She describes this chest pain as "burning" with no alleviating nor exacerbating factors. PAST MEDICAL AND SURGICAL HISTORY: Breast cancer, DVT/PE, and sleep apnea. Status post cholecystectomy, appendectomy, cyst removal from her head, tubal ligation, placement of chemotherapy port and mastectomy. MEDICATIONS: Her current medications are: 1. Tylenol. 2. Bisacodyl. 3. Cholecalciferol. 4. Diphenhydramine. 5. Colace. 6. Lactated Ringer's. 7. Lactulose. 8. Letrozole. 9. Magnesium hydroxide. 10. Morphine sulfate. 11. Multivitamin. 12. Ondansetron. 13. Oxycodone. 14. Percocet. 15. Prochlorperazine. 16. Rivaroxaban. 17. Scopolamine. Her home medications are: 1. Letrozole. 2. Vitamin D3. ALLERGIES: MACRODANTIN. FAMILY HISTORY: Cancer. SOCIAL HISTORY: She is a 63-year-old female, who lives with her spouse. She is a former smoker, but quit approximately 30 years ago. Denies any history of use of drugs and uses occasional alcohol. REVIEW OF SYSTEMS: The patient mentions she no longer has chest pain at the time of my visit and her chest pain only lasted for 3 minutes. It is nonradiating as described above. She denies any history of headaches, dizziness , fevers, chills, nausea or vomiting. As mentioned, no longer have any chest pain at the time of my evaluation. No shortness of breath. No abdominal pain, diarrhea, constipation, pain and/or increased frequency on urination, myalgias, arthralgias, throat pain or new skin lesions. Rest of the review of systems are otherwise unremarkable. PHYSICAL EXAM: Shows most recent vital signs of records with blood pressure of 119/62, 99 degrees Fahrenheit, 77 beats per minute heart rate, 16 per minute respiratory rate, 88% saturation in room air. General Appearance: The patient is awake, alert, and oriented x3, not in any acute distress, obese. HEENT: Normocephalic, atraumatic. PERRLA. Extraocular muscles intact. Negative for icterus. Moist oral mucosa. Negative throat erythema. Neck is soft, supple with no cervical lymphadenopathy, no JVD. Heart: S1 and S2 within normal limits, regular rate and rhythm. No murmurs, rubs or gallops. Chest: Clear to auscultation bilaterally. Good air entry. No wheezes, rales or rhonchi. Abdomen is soft, nondistended, nontender, normoactive bowel sounds x4 quadrants. Extremities: No cyanosis, clubbing or edema. Psychiatric: No active psychosis, depression, suicidal or homicidal ideation. Skin is warm to touch. DIAGNOSTIC STUDIES/LAB DATA: Most recent and pertinent laboratories drawn today shows H and H of 10.6 and 32. Platelets of 160. No other labs are drawn today. ASSESSMENT AND PLAN: The patient is a 63-year-old lady with history of breast cancer and PE while she was in chemotherapy with breast cancer as well as mild sleep apnea, admitted for elective right total knee arthroplasty, being observed at this time for atypical chest pain. 1. Atypical chest pain, likely noncardiac in nature. She has a ROM score of 0 and hence my recommendation would be to discharge patient as planned once ACS has been ruled out over 18 hours unless her troponins become positive, then she might either require a stress test and/or possible catheterization. As mentioned, she is currently at low risk, but we will further update her risk assessment with serial troponins as discussed. At this time, I have nothing else to add in regards to the question of her chest pain. I have discussed the plan with both Amrit as well as Dr. العلي, who agrees with the above assessment and plan. Please call me for any questions and certainly if the troponins become positive. We will follow along with the laboratories with you and if they are normal, as mentioned we will sign off. [id number]/[facility] #: [id number] [facility]OSPITALDivina
[2018-10-23] MEDS: oxyCODONE TAB* 5 MG TAB PO PRN (21:30)
[2018-10-24 06:13] LABS: Hematocrit 32 % (35-47); Hemoglobin 10.5 g/dL (12.0-16.0); Mean Platelet Volume 9.6 fL (7.4-10.4); Platelet Count 165 10^3/uL (150-450)
[2018-10-24] MEDS: Acetaminophen TAB* 325 MG PO SCH ×2 (06:33→11:23)
[2018-10-24] MEDS: oxyCODONE/Acetamin 5/325 MG* TAB PO PRN (08:34)
[2018-10-24 08:35] VITALS: BP 154/67
--- NOTE | 2018-10-24 09:01 | PN ---
Progress Note - Progress Note Date of Service: 10/24/18 SOAP: Subjective: Pt seen sitting up in chair. Minimal c/o pain today. Denies CP, SOB, N/V. Vital Signs: Temp Pulse Resp BP Pulse Ox 98.4 F 72 18 154/67 97 10/24/18 07:41 10/24/18 07:41 10/24/18 08:34 10/24/18 07:41 10/24/18 07:41 Laboratory Last Values Hgb 10.5 g/dL (12.0-16.0) L 10/24/18 05:17 Hct 32 % (35-47) L 10/24/18 05:17 Plt Count 165 10^3/uL (150-450) 10/24/18 05:17 MPV 9.6 fL (7.4-10.4) 10/24/18 05:17 Sodium 139 mmol/L (135-145) 10/22/18 06:18 Potassium 4.2 mmol/L (3.5-5.0) 10/22/18 07:23 Chloride 105 mmol/L (101-111) 10/22/18 06:18 Carbon Dioxide 27 mmol/L (22-32) 10/22/18 06:18 Anion Gap 7 mmol/L (2-11) 10/22/18 06:18 BUN 11 mg/dL (6-24) 10/22/18 06:18 Creatinine 0.84 mg/dL (0.51-0.95) 10/22/18 06:18 Est GFR ( Amer) 82.9 (>60) 10/22/18 06:18 Est GFR (Non-Af Amer) 68.5 (>60) 10/22/18 06:18 BUN/Creatinine Ratio 13.1 (8-20) 10/22/18 06:18 Glucose 138 mg/dL (70-100) H 10/22/18 06:18 Calcium 9.0 mg/dL (8.6-10.3) 10/22/18 06:18 Troponin I 0.00 ng/mL (<0.04) 10/23/18 20:59 Objective: A&O x3, NAD, Dressing C/D/I, Calves soft and nontender, No edema, NVI distally. Assessment: 63 yo female s/p Right TKA POD #3 Plan: OOB, PT/OT Pain control DVT prophylaxis - Xarelto CP - Chest xray, Labs, EKG all normal Hospitalist signed off, appreciate input D/C home today
[2018-10-24] MEDS: Cholecalciferol TAB* 1000 UNITS PO SCH (09:03)
[2018-10-24] MEDS: Rivaroxaban TAB(*) 20 MG TAB PO SCH (09:03)
[2018-10-24] MEDS: Docusate CAP* 100 MG PO SCH (09:03)
[2018-10-24] MEDS: Vitamin THERAPEUTIC TAB PO SCH (09:03)
[2018-10-24] MEDS: Magnesium Hydroxide LIQ* 30 ML UDC PO SCH (09:04)
[2018-10-25] MEDS ORDERED: Scopolamine PATCH Remove* 1 NOTE MISC PATCH OFF SCH (11:00)
--- NOTE | 2018-10-26 | DS ---
DISCHARGE SUMMARY: DATE OF ADMISSION: 10/21/18 DATE OF DISCHARGE: 10/24/18 ATTENDING PHYSICIAN: Dr. Carolyn العلي.* (DICTATED BY UYEN CORTEZ) PRINCIPAL DIAGNOSIS: Right knee osteoarthritis. SECONDARY DIAGNOSES: History of breast cancer, DVT/PE, and sleep apnea. PRINCIPAL PROCEDURE: Right total knee arthroplasty. REASON FOR HOSPITALIZATION: Ms. Benton is a 63-year-old female with end-stage osteoarthritis of the right knee. She has failed conservative treatment and elected to proceed with right total knee arthroplasty. HOSPITAL COURSE: The patient was admitted to the hospital on 10/21/18 for anticipated right total knee arthroplasty. She underwent her procedure without any complications. She was transferred to the recovery room and subsequently the surgical stay unit in a stable condition. She participated in physical therapy and occupational therapy throughout the hospital course and has done well with it. She has been taking Percocet for postoperative pain management. Her daily hemoglobin and hematocrit were drawn and hemoglobin was 10.5 and hematocrit was 32 on the day of discharge. On postop day #1, she complained of chest pain. She stated that this lasted for about 3 minutes. She felt like it was more like indigestion. Serial troponins were drawn. Chest x-ray and EKG were done, which were all within normal limits. Her discharge was held over until postop day #3. Her vital signs have remained stable throughout the hospital course including remaining afebrile and she was discharged to home in a stable condition on 10/24/18. DISCHARGE INSTRUCTIONS: Weightbearing as tolerated. Wound care. Okay to shower on postop day #3. No bathing, swimming, submerging wound. Use gentle soap, pat dry, cover it with gauze, Les wrap or tape. Call orthopedic office for increased drainage or redness, increased pain or fever. Go to ER with shortness of breath or chest pain. Regular diet. Increase fluids and fiber to prevent constipation. Continue to use stool softeners. Call office if no bowel motion within 48 hours. Continue physical therapy and occupational therapy exercises as shown. Visiting home nurse to do wound checks. Antibiotics required prior to any dental work. Follow up with Dr. العلي in 10 to 14 days. Call office for an appointment. Please call our office with any questions or concerns, . UYEN CORTEZ [id number]/[facility] #: [id number] [facility]ENTERDivina
== END 2018-10-24 10:45 | disposition home health service (06) | DRG 302 ==
LOC: AA 05:53 → SSU 10:52
PROVIDERS: ADMIT Orthopaedic Surgery Adult Reconstructive Orthopaedic Surgery; ATTEND Orthopaedic Surgery Adult Reconstructive Orthopaedic Surgery
PROC: 0SRC069 Replacement of Right Knee Joint with Oxidized Zirconium on Polyethylene Synthetic Substitute, Cemented, Open Approach (ICD-10-PCS; principal; 2018-10-21 07:45)
DX: M17.11 Unilateral primary osteoarthritis, right knee (principal); M25.761 Osteophyte, right knee; G47.30 Sleep apnea, unspecified; R07.89 Other chest pain; Z86.711 Personal history of pulmonary embolism; Z85.3 Personal history of malignant neoplasm of breast; Z86.718 Personal history of other venous thrombosis and embolism; Z79.899 Other long term (current) drug therapy; Z88.8 Allergy status to other drugs, medicaments and biological substances; Z80.9 Family history of malignant neoplasm, unspecified; Z87.891 Personal history of nicotine dependence
CPT/HCPCS: 36415; 71046; 80048; 84484; 85014; 85018; 85049; 88305; 88311; 93005; A9270-GY; C1776; J0330; J0690; J0780; J1100; J1170; J1240; J1885; J2250; J2270; J2405; J2704; J2795; J3010